=== PATIENT | female | born 1950 | race Caucasian/White ===

== ENCOUNTER 2019-05-16 11:29 | Inpatient (IN) ==
--- NOTE | 2019-05-16 09:38 | Anesthesia Evaluation PreOp ---
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 History: TIA (2012) Other Medical History: Renal (CKD), Diabetes Type II, Other (rectal CA s/p chemo ans XRT) Anesthesia History: No Prior Anesthetic Complications, Past Anesthesia (colon resection, JOSE LUIS, bladder repair) Alcohol Use: none Drug use: none Medications and Allergies Pravastatin Sodium [Pravachol] 20 mg PO HS 05/16/15 [History] Aspirin 81 mg PO DAILY 07/01/16 [History] Losartan/Hydrochlorothiazide [Hyzaar 100-25 Tablet] 0.5 each PO DAILY 07/01/16 [History] Glimepiride [Amaryl] 2 mg PO BID 06/30/18 [History] Cyanocobalamin (Vitamin B-12) [Vitamin B12] 1,000 mcg PO DAILY 07/02/18 [History] Metformin HCl [Glucophage Xr] 750 mg PO DAILY 11/09/18 [History] Amlodipine Besylate 10 mg PO DAILY 11/29/18 [History] Metoprolol Tartrate 100 mg PO BID 11/30/18 [History] Loperamide HCl [Imodium A-D] 2 mg PO Q6H PRN #90 capsule 02/08/19 [Rx] Ferrous Sulfate [Iron] 325 mg PO BID #60 tablet 03/21/19 [Rx] hydroCHLOROthiazide [Hydrochlorothiazide] 25 mg PO DAILY 04/05/19 [History] Metaxalone [Skelaxin] 800 mg PO TID PRN 5 Days #15 tablet 05/03/19 [Rx] cephALEXin [Keflex] 500 mg PO TID 5 Days #15 capsule 05/03/19 [Rx] Allergy/AdvReac Type Severity Reaction Status Date / Time pioglitazone [From Actos] Allergy See Verified 05/03/19 14:32 Comments - Meds/Allergy Pre-op Review Medications Reviewed: Yes Allergies Reviewed: Yes Beta Blockers on Current Med List: Yes (metoprolol) If Beta Blockers taken, Date/Time (Last Dose taken): today 0800 Anesthesia Results - Labs Laboratory Tests 05/03/19 05/03/19 15:33 15:33 Hgb 10.1 L Hct 31.2 L Plt Count 261 BUN 52 H Creatinine 1.72 H Anesthesia Exam Selected Entries 05/16/19 11:56 Temperature 98.1 F Pulse Rate 103 Respiratory Rate 18 Blood Pressure 130/71 O2 Sat by Pulse Oximetry 93 Weight: 79kg NPO (# of Hours): 8 - HEENT Pupil (Motor): EOMI Mallampati: II Teeth: Normal Oral Opening: Greater than 3 - 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
[2019-05-16] MEDS ORDERED: *HR* HYDROmorphone (PF) 1 MG/ML SYRINGE IVP PRN (12:27)
[2019-05-16] MEDS ORDERED: *HR* Promethazine 25 MG/ML VIAL IVP PRN ×2 (12:27→17:55)
[2019-05-16] MEDS ORDERED: Ringers Solution, Lactated 1,000 ML IVC SCH (12:30)
[2019-05-16] MEDS ORDERED: cefOXitin 2,000 MG in Water for inj. (sterile) 20 ML IVP ONE (12:31)
[2019-05-16] MEDS ORDERED: Albuterol 2.5 MG/3 ML NEBULIZER IH ONE (12:31)
[2019-05-16] MEDS ORDERED: Lidocaine -MPF 2% 2 ML VIAL ONE (13:58)
[2019-05-16] MEDS ORDERED: *HR* Propofol 200 MG/20 ML VIAL IVP ONE (13:58)
[2019-05-16] MEDS ORDERED: *HR* Rocuronium Bromide 50 MG/5 ML VIAL ONE (13:58)
[2019-05-16] MEDS ORDERED: *HR* FentaNYL (PF) 100 MCG/2 ML VIAL ONE ×2 (13:58→16:27)
[2019-05-16] MEDS ORDERED: *HR* Succinylcholine 200 MG/10 ML VIAL IVP ONE (13:59)
[2019-05-16] MEDS ORDERED: Ondansetron 4 MG/2 ML VIAL ONE (14:00)
[2019-05-16] MEDS ORDERED: Dexamethasone 4 MG/ML VIAL ONE (14:00)
[2019-05-16] MEDS ORDERED: Lidocaine HCL 4 ML Topical Solution (Laryng-O-Jet Kit Sterile Pak) TP ONE (14:09)
--- NOTE | 2019-05-16 15:02 | General Surg History&Physical ---
Date of Encounter: 05/16/19 Time of Encounter: 14:57 Assessment and Plan (1) History of low anterior resection of rectum Current Visit: Yes Status: Acute The assessment and plan as outlined above was discussed with the patient and/or family members who expressed understanding and agreement. All questions were answered. patient s/p LAR with diverting loop ileostomy, plan ostomy reversal, risks and benefits discussed and she wishes to proceed (2) Rectal cancer Current Visit: No Status: Acute The assessment and plan as outlined above was discussed with the patient and/or family members who expressed understanding and agreement. All questions were answered. (3) Diabetes mellitus Current Visit: No Status: Acute The assessment and plan as outlined above was discussed with the patient and/or family members who expressed understanding and agreement. All questions were answered. Qualifiers: Diabetes mellitus type: type 2 Diabetes mellitus alf insulin use: unspecified alf insulin use status Diabetes mellitus complication detail: with chronic kidney disease Chronic kidney disease stage: stage 3 (moderate) Qualified Code(s): E11.22 - Type 2 diabetes mellitus with diabetic chronic kidney disease; N18.3 - Chronic kidney disease, stage 3 (moderate) (4) Hypertension associated with stage 3 chronic kidney disease due to type 2 diabetes mellitus Current Visit: No Status: Acute The assessment and plan as outlined above was discussed with the patient and/or family members who expressed understanding and agreement. All questions were answered. History of Present Illness Chief complaint: history rectal cancer and loop ileostomy HPI: Ms. Aviles is a 68 year old female with a history of middle rectal cancer, received neoadjuvant therapy, s/p Robotic LAR with loop ileostomy, underwent adjuvant therapy, here today for loop ileostomy take down Past Med Surg Social Fam HX - Past Medical History Source: patient Medical history: cancer (rectal), diabetes, hyperlipidemia, hypertension, renal disease, TIA Additional medical history: Rectal CA. Fibrocystic breast dx Psychiatric history: no psych history - Past Surgical History Surgical History: hysterectomy, JOSE LUIS/BSO, other Additional surgical history: Colonoscopy. L breast bx. bladder repair - Social History Smoking Status: Never smoker Smokeless Tobacco Status: No Alcohol use: none Drug use: none - Family History Mother Living Status: Hx Family Cardiac Disorders: Yes Father Living Status: Medications and Allergies Pravastatin Sodium [Pravachol] 20 mg PO HS 05/16/15 [History] Aspirin 81 mg PO DAILY 07/01/16 [History] Cyanocobalamin (Vitamin B-12) [Vitamin B12] 1,000 mcg PO DAILY 07/02/18 [History] Metformin HCl [Glucophage Xr] 750 mg PO QPM 11/09/18 [History] Amlodipine Besylate 10 mg PO DAILY 11/29/18 [History] Metoprolol Tartrate 100 mg PO BID 11/30/18 [History] Loperamide HCl [Imodium A-D] 2 mg PO Q6H PRN #90 capsule 02/08/19 [Rx] Ferrous Sulfate [Iron] 325 mg PO BID #60 tablet 03/21/19 [Rx] Glimepiride [Amaryl] 2 mg PO BID 05/16/19 [History] Losartan/Hydrochlorothiazide [Losartan-Hctz 100-12.5 mg Tab] 0.5 tab PO DAILY 05/16/19 [History] Allergy/AdvReac Type Severity Reaction Status Date / Time pioglitazone [From Cytheris] Allergy See Verified 05/03/19 14:32 Comments Review of Systems All systems PM: reviewed and no additional remarkable complaints except as stated All systems PM: The remainder of the systems were reviewed and are negative General Surgery Exam Initial Vital Signs Temp Pulse Resp BP Pulse Ox 98.1 F 103 18 130/71 93 05/16/19 11:56 05/16/19 11:56 05/16/19 11:56 05/16/19 11:56 05/16/19 11:56 - General physical appearance well developed, well nourished, no distress - Eyes PERRL, normal ocular movement - ENT normal mucosa - Respiratory normal expansion - Cardiovascular Cardiovascular exam: Present: RRR - Abdomen Abdomen general surgery: Present: bowel sounds present, soft, non tender (loop ileostomy) - Integumentary Integumentary general surgery: Present: warm and dry - Neurologic Present: CN 2-12 grossly intact - Musculoskeletal Present: normal posture - Psychiatric Psychiatric general surgery: Present: A&Ox3 Results - Labs All other labs normal.
[2019-05-16] MEDS ORDERED: EPHEDrine 50 MG/ML VIAL ONE (15:41)
[2019-05-16] MEDS ORDERED: Neostigmine Methylsulfate 3 MG/3 ML SYRINGE ONE ×2 (16:09)
[2019-05-16] MEDS ORDERED: *HR* PHENYLEPHRINE 1,000 MCG/10 ML SYRINGE IVP ONE (16:10)
--- NOTE | 2019-05-16 17:09 | Operative Note ---
Date of procedure: 05/16/19 Pre-op diagnosis: rectal cancer, s/p LAR with loop ileostomy Post-op diagnosis: same Procedure: Loop ileostomy takedown Complications: none immediate Anesthesia: GETA Surgeon: Rosario Santana Was there an assistant kitchen manager present: Yes Xerox Machine Operator: Theresa Pandey Estimated blood loss (cc): 5 Specimen: ileum Condition: stable Disposition: PACU Procedure in Detail: Patient was brought into the operating suite and placed supine on the operating table. Sign in was performed and everyone was in agreement. Anesthesia was induced and patient was endotracheally intubated by anesthesia without incident. Ileostomy appliance was removed and the skin cleaned with adhesive remover. The abdomen was prepped and draped in the usual sterile fashion with Betadine. Timeout was performed again everyone was in agreement. A transverse elliptical incision through the skin and the subcutaneous tissue surrounding the loop ileostomy was made with a 15 blade. Dissection through the subcutaneous tissue to the intra-abdominal fascia was accomplished with the Bovie and hemostat. The small bowel was taken off the fascia circumferentially. A opening in the mesentery proximally and distally to the open loop ileostomy was made with a Bovie and the proximal and distal small bowel were transected with a linear ROGER- 75 stapler 2. A [id number] ileoileal anastomosis was created first with a linear ROGER-75 stapler blue load then a TA 60 stapler closing the common channel. 3-0 silk stitch was placed as a crotch stitch. The common channel closed and was reinforced with 3-0 silk [id number] stitches. The lumen was felt to be patent. The small bowel was irrigated then returned to the intra-abdominal cavity. Janneth was placed on either side of the fascia for retraction. The anterior abdominal wall at the rectus muscle was reapproximated with 2 #1 non- looped PDS stitches running and meeting in the middle. The subcutaneous tissue was copiously irrigated with sterile saline. The subcutaneous tissue was reapproximated with 3-0 Vicryl interrupted stitches. The skin was closed with wesley. Quarter inch iodoform gauze was packed in the middle of the incision. 4 x 4 gauze and Medipore tape were applied to the skin as a dressing. All lap and ensuring counts are correct at the end of the case. Patient tolerated the procedure well. She was awoken by anesthesia and extubated in the OR. She was taken to PACU in stable condition.
[2019-05-16] MEDS ORDERED: *HR* Metoprolol 5 MG/5 ML VIAL IVP PRN (17:55)
[2019-05-16] MEDS ORDERED: Dextrose Gel 15 GM/37.5 ML TUBE PO PRN ×4 (17:55)
[2019-05-16] MEDS ORDERED: D5% in Water 1,000 ML IVC PRN (17:55)
[2019-05-16] MEDS ORDERED: Ondansetron 4 MG/2 ML VIAL IVP PRN (17:55)
[2019-05-16] MEDS ORDERED: *HR* Dextrose 50 % in Water (Syg) 50 ML SYRINGE IVP PRN (17:55)
[2019-05-16] MEDS ORDERED: Naloxone 0.4 MG/ML INJ IVP PRN (17:55)
[2019-05-16] MEDS: 0.9 % Sodium Chloride 1,000 ML IVC SCH (18:51)
[2019-05-16] MEDS: *HR* OxyCODONE/APAP 5/325 TABLET PO PRN (18:57)
[2019-05-16] MEDS: Insulin LISPRO 300 UNITS/3 ML VIAL SQ SCH (18:59)
[2019-05-16] MEDS: Metoprolol 100 MG TABLET PO SCH (20:43)
--- NOTE | 2019-05-16 23:34 | Anesthesia Evaluation Post Op ---
Date of Encounter: 05/16/19 Time of Encounter: 17:39 - Discharge PostOp Status: Transfer Patient to floor (Patient's vital signs have been reviewed. Patient is stable postoperatively and has adequately recovered from anesthesia. Patient is determined to have stable airway patency and respiratory function including respiratory rate and oxygen saturation. Patient has a stable heart rate, blood pressure and adequate hydration. Patients mental status is acceptable. Patients temperature is appropriate. Pain and nausea are adequately controlled)
[2019-05-17] MEDS: Piperacillin/Tazobactam 3.375 GM in 0.9 % Sodium Chloride Mini Bag 100 ML IVPB SCH ×3 (00:27→15:15)
[2019-05-17] MEDS: Insulin LISPRO 300 UNITS/3 ML VIAL SQ SCH ×4 (00:27→18:30)
[2019-05-17] MEDS: *HR* OxyCODONE/APAP 5/325 TABLET PO PRN ×3 (00:36→15:18)
[2019-05-17 04:15] LABS: Basophils % 0.1 %; Hematocrit 29.3 % (35.3-44.9); Hemoglobin 9.3 g/dL (11.5-15.4); Immature Granulocytes % 0.5 % (0-4); Lymphocytes # 0.4 K/mcL (0.6-4.6); Lymphocytes % 2.2 %; Mean Corpuscular HGB Conc 31.7 g/dL (31.6-35.5); Mean Corpuscular Hemoglobin 33.2 pg (28.0-33.3); Mean Corpuscular Volume 104.6 fL (83.0-100.0); Mean Platelet Volume 8.9 fL (9.4-12.4); Monocytes # 0.4 K/mcL (0.0-1.3); Monocytes % 2.7 %; Neutrophils # 15.5 K/mcL (1.6-8.9); Platelet Count 186 K/mcL (140-400); Red Cell Distribution Width 14.1 % (11.5-14.5); Segmented Neutrophils % 94.5 %; White Blood Count 16.3 K/mcL (4.3-11.1)
[2019-05-17 04:32] LABS: Calcium 9.7 mg/dL (8.6-10.3); Magnesium 1.7 mg/dL (1.6-2.6); Phosphorous 4.2 mg/dL (2.7-4.5); Potassium 5.6 mEq/L (3.5-5.1)
[2019-05-17] MEDS: 0.9 % Sodium Chloride 1,000 ML IVC SCH ×2 (05:30→17:32)
[2019-05-17] MEDS: Pantoprazole 40 MG VIAL IVP SCH (07:46)
[2019-05-17] MEDS: Metoprolol 100 MG TABLET PO SCH ×2 (07:55→20:36)
[2019-05-17] MEDS ORDERED: amLODIPine 5 MG TABLET PO SCH (09:00)
[2019-05-17] MEDS ORDERED: hydroCHLOROthiazide 25 MG TABLET PO SCH ×2 (09:00)
--- NOTE | 2019-05-17 10:37 | General Surgery Progress Note ---
<GregReyna Christiano - Last Filed: 05/17/19 10:35> Date of Encounter: 05/17/19 Time of Encounter: 09:30 - Assessment and Plan (1) History of low anterior resection of rectum Current Visit: Yes Status: Acute Date of procedure: 05/16/19 Pre-op diagnosis: rectal cancer, s/p LAR with loop ileostomy Post-op diagnosis: same Procedure: Loop ileostomy takedown Complications: none immediate Anesthesia: GETA Surgeon: Rosario Santana POD #1 as above. She states her pain is controlled. She is recovering as expected. She reports she sometimes uses a walker at home. We will consult PT/OT for mobilization and d/c planning. Plan: Continue supportive care and discomfort management while awaiting full return of bowel function Continue G.I. and DVT prophylaxis Incentive spirometry 10 times every hour while awake Out of bed to chair TID, do not offer meal trays while in the bed Activity as tolerated Apply ice 20 minutes on 20 minutes off as needed Continue IV ATBX Repeat am labs (2) Rectal cancer Current Visit: No Status: Acute (3) Hypertension associated with stage 3 chronic kidney disease due to type 2 diabetes mellitus Current Visit: Yes Status: Chronic Hold antihypertensives for systolic blood pressure less than 110 continue to closely monitor (4) Diabetes mellitus Current Visit: Yes Status: Chronic SSI insulin and Q6H accucheck until appropriate diet Qualifiers: Diabetes mellitus type: type 2 Diabetes mellitus nursing home insulin use: unspecified nursing home insulin use status Diabetes mellitus complication detail: with chronic kidney disease Chronic kidney disease stage: stage 3 (moderate) Qualified Code(s): E11.22 - Type 2 diabetes mellitus with diabetic chronic kidney disease; N18.3 - Chronic kidney disease, stage 3 (moderate) Subjective Patient reports: still having pain (controlled with meds), voiding w/o difficulty, no flatus, no bowel movement, afebrile Narrative: Denies nausea Objective Vital Signs - Last 8 Hours Temp Pulse Resp BP Pulse Ox 05/17/19 06:46 97.4 F L 67 15 99/61 93 05/17/19 02:54 97.7 F 73 16 108/86 94 05/17/19 02:46 98.3 F 96 16 174/78 97 Intake and Output 05/16/19 05/17/19 05/17/19 23:59 07:59 15:59 Intake Total 1100 / 1100 Output Total 250 / 250 Balance -5 850 / 850 Intake: IV Fluids 1100 / 1100 0.9 % Sodium Chloride 1,000 ML 1000 / 1000 @ 85 mls/hr IVC .[id number] [facility] Rx #:[id number] Zosyn 3.375 GM In 0.9 % Sodium 100 / 100 Chloride (Mini-Bag +) 100 ML @ 25 mls/hr IVPB Q8HR [facility] Rx#: [id number] Output: Urine 250 / 250 Estimated Blood Loss Other: # Voids 1 Blood Glucose* 163 210 - General physical appearance well nourished, no distress, moderate pain (controlled), obese - ENT atraumatic, normocephalic - Neck Neck exam: trachea midline - Respiratory normal expansion, normal respiratory effort - Cardiovascular Cardiovascular exam: Present: RRR, distant heart sounds - Abdomen Abdomen: Present: bowel sounds present (faint and hypoactive), soft, tender (expected postoperative) Hernia: none - Incision Incision: Present: clean and dry, intact - Integumentary no rash - Neurologic normal sensation - Musculoskeletal normal posture - Psychiatric oriented to time, oriented to person, oriented to place, speech is normal, memory intact - Labs 05/17/19 03:40 05/17/19 03:40 Diabetes panel 05/17/19 Range/Units 03:40 Sodium 138 (136-145) mEq/L Potassium 5.6 H (3.5-5.1) mEq/L Chloride 108 H (98-107) mEq/L Carbon Dioxide 19 L (23-29) mEq/L BUN 40 H (8-23) mg/dL Creatinine 1.62 H (0.60-1.20) mg/dL Glucose 259 H (70-105) mg/dL Calcium 9.7 (8.6-10.3) mg/dL Calcium panel 05/17/19 Range/Units 03:40 Calcium 9.7 (8.6-10.3) mg/dL Phosphorus 4.2 (2.7-4.5) mg/dL Pituitary panel 05/17/19 Range/Units 03:40 Sodium 138 (136-145) mEq/L Potassium 5.6 H (3.5-5.1) mEq/L Chloride 108 H (98-107) mEq/L Carbon Dioxide 19 L (23-29) mEq/L BUN 40 H (8-23) mg/dL Creatinine 1.62 H (0.60-1.20) mg/dL Glucose 259 H (70-105) mg/dL Calcium 9.7 (8.6-10.3) mg/dL Adrenal panel 05/17/19 Range/Units 03:40 Sodium 138 (136-145) mEq/L Potassium 5.6 H (3.5-5.1) mEq/L Chloride 108 H (98-107) mEq/L Carbon Dioxide 19 L (23-29) mEq/L BUN 40 H (8-23) mg/dL Creatinine 1.62 H (0.60-1.20) mg/dL Glucose 259 H (70-105) mg/dL Calcium 9.7 (8.6-10.3) mg/dL Consult Discharge Plan - Plan Referrals: Sun June MD [Primary Care Provider] - <Rosario Santana - Last Filed: 05/17/19 14:35> Date of Encounter: 05/17/19 - Assessment and Plan (1) History of low anterior resection of rectum Current Visit: Yes Status: Acute pod ~ loop ileostomy reversal start clears prn pain control gi/dvt prophylaxis OOB to chair for all meals continue Abx due to stool contamination during surgery ambulate IS/pulmonary toilet (2) Rectal cancer Current Visit: No Status: Acute (3) Diabetes mellitus Current Visit: Yes Status: Chronic SSI/MBS will start home meds once diet appropriate Qualifiers: Diabetes mellitus type: type 2 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 nursing home insulin use status Diabetes mellitus complication detai l: with chronic kidney disease Chronic kidney disease stage: stage 3 (moderate) Qualified Code(s): E11.22 - Type 2 diabetes mellitus with diabetic chronic kidney disease; N18.3 - Chronic kidney disease, stage 3 (moderate) (4) Hypertension associated with stage 3 chronic kidney disease due to type 2 diabetes mellitus Current Visit: Yes Status: Chronic (5) Leukocytosis Current Visit: Yes Status: Acute likely due to post op, continue abx due to liq stool contamination during takedown,trend Qualifiers: Leukocytosis type: unspecified Qualified Code(s): D72.829 - Elevated white blood cell count, unspecified Subjective Patient reports: still having pain, voiding w/o difficulty, no flatus, no bowel movement, afebrile Objective Vital Signs - Last 8 Hours Temp Pulse Resp BP Pulse Ox 05/17/19 12:14 97.7 F 71 16 106/66 90 05/17/19 06:46 97.4 F L 67 15 99/61 93 Intake and Output 05/16/19 05/17/19 05/17/19 23:59 07:59 15:59 Intake Total 1100 / 1200 100 / 1200 Output Total 5 / 5 250 / 250 Balance -5 / -5 850 / 950 100 / 950 Intake: IV Fluids 1100 / 1200 100 / 1200 0.9 % Sodium Chloride 1,000 ML 1000 / 1000 @ 85 mls/hr IVC .[id number] [facility] Rx #:[id number] Zosyn 3.375 GM In 0.9 % Sodium 100 / 200 100 / 200 Chloride (Mini-Bag +) 100 ML @ 25 mls/hr IVPB Q8HR [facility] Rx#: [id number] Output: Urine 250 / 250 Estimated Blood Loss 5 5 Other: # Voids 1 Blood Glucose* 163 210 166 - General physical appearance well developed, well nourished, no distress, moderate pain - Eyes normal ocular movement - ENT normal mucosa, atraumatic - Neck Neck exam: trachea midline - Respiratory normal expansion, normal respiratory effort - Cardiovascular Cardiovascular exam: Present: RRR - Abdomen Abdomen: Present: bowel sounds present, soft, tender - Incision Incision: Present: clean and dry, intact (iodoform packing in middle) - Integumentary no rash - Neurologic normal sensation - Musculoskeletal normal posture - Psychiatric oriented to time, oriented to person, oriented to place, speech is normal, memory intact - Labs 05/17/19 03:40 05/17/19 03:40 Diabetes panel 05/17/19 Range/Units 03:40 Sodium 138 (136-145) mEq/L Potassium 5.6 H (3.5-5.1) mEq/L Chloride 108 H (98-107) mEq/L Carbon Dioxide 19 L (23-29) mEq/L BUN 40 H (8-23) mg/dL Creatinine 1.62 H (0.60-1.20) mg/dL Glucose 259 H (70-105) mg/dL Calcium 9.7 (8.6-10.3) mg/dL Calcium panel 05/17/19 Range/Units 03:40 Calcium 9.7 (8.6-10.3) mg/dL Phosphorus 4.2 (2.7-4.5) mg/dL Pituitary panel 05/17/19 Range/Units 03:40 Sodium 138 (136-145) mEq/L Potassium 5.6 H (3.5-5.1) mEq/L Chloride 108 H (98-107) mEq/L Carbon Dioxide 19 L (23-29) mEq/L BUN 40 H (8-23) mg/dL Creatinine 1.62 H (0.60-1.20) mg/dL Glucose 259 H (70-105) mg/dL Calcium 9.7 (8.6-10.3) mg/dL Adrenal panel 05/17/19 Range/Units 03:40 Sodium 138 (136-145) mEq/L Potassium 5.6 H (3.5-5.1) mEq/L Chloride 108 H (98-107) mEq/L Carbon Dioxide 19 L (23-29) mEq/L BUN 40 H (8-23) mg/dL Creatinine 1.62 H (0.60-1.20) mg/dL Glucose 259 H (70-105) mg/dL Calcium 9.7 (8.6-10.3) mg/dL - Attending Attestation I have personally performed a face to face evaluation on this patient. I have reviewed and agree with the care plan. History and Exam by me shows:
[2019-05-17] MEDS: amLODIPine 5 MG TABLET PO SCH (10:55)
[2019-05-18] MEDS: Piperacillin/Tazobactam 3.375 GM in 0.9 % Sodium Chloride Mini Bag 100 ML IVPB SCH ×4 (00:18→22:17)
[2019-05-18] MEDS: Insulin LISPRO 300 UNITS/3 ML VIAL SQ SCH ×5 (03:57→20:38)
[2019-05-18] MEDS: 0.9 % Sodium Chloride 1,000 ML IVC SCH ×3 (05:04→19:08)
[2019-05-18 05:25] LABS: Basophils % 0.2 %; Eosinophils % 0.3 %; Hematocrit 26.7 % (35.3-44.9); Hemoglobin 8.4 g/dL (11.5-15.4); Immature Granulocytes % 0.4 % (0-4); Lymphocytes # 0.5 K/mcL (0.6-4.6); Lymphocytes % 4.5 %; Mean Corpuscular HGB Conc 31.5 g/dL (31.6-35.5); Mean Corpuscular Hemoglobin 33.1 pg (28.0-33.3); Mean Corpuscular Volume 105.1 fL (83.0-100.0); Mean Platelet Volume 9.1 fL (9.4-12.4); Monocytes # 0.5 K/mcL (0.0-1.3); Monocytes % 5.1 %; Neutrophils # 9.2 K/mcL (1.6-8.9); Platelet Count 162 K/mcL (140-400); Red Blood Count 2.54 M/mcL (3.82-4.97); Red Cell Distribution Width 14.1 % (11.5-14.5); Segmented Neutrophils % 89.5 %; White Blood Count 10.3 K/mcL (4.3-11.1)
[2019-05-18 05:50] LABS: Potassium 4.5 mEq/L (3.5-5.1)
[2019-05-18] MEDS: amLODIPine 5 MG TABLET PO SCH (09:27)
[2019-05-18] MEDS: Metoprolol 100 MG TABLET PO SCH ×2 (09:28→20:09)
--- NOTE | 2019-05-18 10:53 | General Surgery Progress Note ---
<Judy Tinajero - Last Filed: 05/18/19 10:46> Date of Encounter: 05/18/19 Time of Encounter: 10:30 - Assessment and Plan (1) History of low anterior resection of rectum Status: Acute POD #2 Loop ileostomy takedown with Dr. Santana Advance to full liquid diet- diabetic modifications Continue IV fluids- 85ml/hour IV antibiotics- Zosyn for fecal contamination Supportive care and pain control Daily wound care- wound packed per myself IS every 1 hour while awake GI/DVT prophylaxis Ambulate hallways TID with assistance Abdominal binder AM labs- CBC, BMP Place power glide for poor IV access (2) Rectal cancer Status: Chronic (3) Diabetes mellitus Status: Chronic Full liquid diet with diabetic modification SSI ACHS- increase to high sliding scale Will continue to monitor and adjust as necessary Qualifiers: Diabetes mellitus type: type 2 Diabetes mellitus fci insulin use: unspecified termite treater helper insulin use status Diabetes mellitus complication detail: with chronic kidney disease Chronic kidney disease stage: stage 3 (moderate) Qualified Code(s): E11.22 - Type 2 diabetes mellitus with diabetic chronic kidney disease; N18.3 - Chronic kidney disease, stage 3 (moderate) (4) Hypertension associated with stage 3 chronic kidney disease due to type 2 diabetes mellitus Status: Chronic Controlled Continue to monitor and adjust medications as necessary Subjective Patient reports: no new complaints, feels better, pain is less, tolerating l iquids well, voiding w/o difficulty, flatus, bowel movement, blood in stool (resolved this morning), afebrile, other (Patient out of bed to chair bathing and walked in the hallway this morning with assistance) Objective Vital Signs - Last 8 Hours Temp Pulse Resp BP Pulse Ox 05/18/19 07:14 98.8 F 96 16 120/74 92 05/18/19 04:26 99.6 F 92 17 109/67 95 Intake and Output 05/17/19 05/18/19 05/18/19 23:59 07:59 15:59 Intake Total 1100 / 2300 1100 / 1540 440 / 1540 Output Total 300 / 300 Balance 1099 / 0 800 / 1240 440 / 1240 Intake: IV Fluids 1100 / 2300 1100 / 1300 200 / 1300 0.9 % Sodium Chloride 1,000 ML 1000 / 2000 1000 / 1200 200 / 1200 @ 85 mls/hr IVC .[id number] [facility] Rx #:[id number] Zosyn 3.375 GM In 0.9 % Sodium 100 / 300 100 / 100 Chloride (Mini-Bag +) 100 ML @ 25 mls/hr IVPB Q8HR [facility] Rx#: [id number] Oral 240 / 240 Output: Urine 300 / 300 Other: Meal Breakfast Percent of Meal Consumed 75% Stool Size Moderate Stool Consistency liquid Stool Color Pale Bright Red Blood # Voids 1 # Bowel Movements 1 Blood Glucose* 124 204 - General physical appearance well developed, well nourished, no distress - Eyes normal ocular movement - ENT normal mucosa, atraumatic, normocephalic - Neck Neck exam: trachea midline - Respiratory normal respiratory effort, clear to auscultation - Cardiovascular Cardiovascular exam: Present: RRR - Abdomen Abdomen: Present: bowel sounds present, soft, tender (minimal, expected post- operative discomfort), wound (Ileostomy site with scant amount of serousang. drainage noted, packing placed per myself) - Incision Incision: Present: serosanguinous (scant amount of drainage noted from old ileostomy site) - Neurologic CN 2-12 grossly intact - Musculoskeletal normal gait, normal posture - Psychiatric oriented to time, oriented to person, oriented to place, speech is normal, memory intact - Labs 05/18/19 04:20 05/18/19 04:20 Diabetes panel 05/18/19 Range/Units 04:20 Sodium 139 (136-145) mEq/L Potassium 4.5 (3.5-5.1) mEq/L Chloride 109 H (98-107) mEq/L Carbon Dioxide 21 L (23-29) mEq/L BUN 32 H (8-23) mg/dL Creatinine 1.56 H (0.60-1.20) mg/dL Glucose 198 H (70-105) mg/dL Calcium 9.0 (8.6-10.3) mg/dL Calcium panel 05/18/19 Range/Units 04:20 Calcium 9.0 (8.6-10.3) mg/dL Pituitary panel 05/18/19 Range/Units 04:20 Sodium 139 (136-145) mEq/L Potassium 4.5 (3.5-5.1) mEq/L Chloride 109 H (98-107) mEq/L Carbon Dioxide 21 L (23-29) mEq/L BUN 32 H (8-23) mg/dL Creatinine 1.56 H (0.60-1.20) mg/dL Glucose 198 H (70-105) mg/dL Calcium 9.0 (8.6-10.3) mg/dL Adrenal panel 05/18/19 Range/Units 04:20 Sodium 139 (136-145) mEq/L Potassium 4.5 (3.5-5.1) mEq/L Chloride 109 H (98-107) mEq/L Carbon Dioxide 21 L (23-29) mEq/L BUN 32 H (8-23) mg/dL Creatinine 1.56 H (0.60-1.20) mg/dL Glucose 198 H (70-105) mg/dL Calcium 9.0 (8.6-10.3) mg/dL Consult Discharge Plan - Plan Instructions: Ileostomy Closure (DC) Additional Instructions: General Surgical Discharge Instructions 1. No pushing, pulling, or lifting greater than 15 lbs for 6 weeks. 2. You may remove your dressings and shower beginning today, but no tub baths, soaking, or swimming for 2 weeks. 3. No driving for one weeks unless otherwise specified and then you may resume driving when you are off narcotics and are safe to react in a car. 4. Apply ice 20 minutes every hour that you are awake to your abdomen and [id number] mg Tylenol every 6 hours for discomfort. If this does not relieve d iscomfort, you may take the as needed Oxycodone. Eat a small snack with pain medication as this will help reduce the risk of nausea. Take narcotics as directed. Do not take more narcotics then directed and do not share your narcotics with any other person. Do not drink alcohol while on narcotics. You can take the Zofran/ondansetron if needed for nausea or with a dose of narcotics to prevent nausea. 5. Take immodium as directed for diarrhea. Drink AT LEAST 64 ounces of fluids daily and avoid sugary drinks. 6. Report any fevers greater than 100.5F, increase abdominal discomfort, drainage that looks like pus, increased redness or pain at the surgical site, or any vomiting. 7. Report any pain in the calves, shortness of breath, or rapid heartbeat. 8. Follow-up in the office as directed. 9. If you were prescribed antibiotics, do not stop them without talking to your provider. Daily Wound Care: Remove dressing and packing. Repack with 1/4 inch plain gauze (for wicking purposes only. Do not pack into the abdominal wall). Cover with a dry dressing. Referrals: Sun uJne MD [Primary Care Provider] - Rosario Santana MD [Partnered Physician] - 06/01/19 9:05 am Prescriptions: Amoxicillin/Clavulanate [Augmentin] 875 mg PO BIDWM 7 Days #8 tablet OxyCODONE Immed Rel [Roxicodone 5 MG] 5 mg PO Q6HR PRN 5 Days #20 tablet PRN Reason: Severe Pain Ondansetron HCl [Zofran] 4 mg PO Q8HR PRN #14 tab PRN Reason: Nausea - Attending Attestation For this encounter, I have reviewed the TOOL AND DIE MANAGER or PA documentation, treatment plan, and medical decision making; and I have had face to face time with this patient. <Rosario Santana - Last Filed: 05/19/19 17:55> Date of Encounter: 05/18/19 - Assessment and Plan (1) History of low anterior resection of rectum Status: Acute tolerating clears and advanced to fulls some nausea and distention yesterday but improved today had bm/flatus prn pain control continue abx for fecal contamination ambulate OOB in chair with meals ok shower daily dressing changes (2) Rectal cancer Status: Chronic (3) Diabetes mellitus Status: Chronic Qualifiers: Diabetes mellitus type: type 2 Diabetes mellitus fci insulin use: unspecified termite treater helper insulin use status Diabetes mellitus complication status: with kidney complications Diabetes mellitus complication detail: with chronic kidney disease Chronic kidney disease stage: stage 3 (moderate) Qualified Code(s): E11.22 - Type 2 diabetes mellitus with diabetic chronic k idney disease; N18.3 - Chronic kidney disease, stage 3 (moderate) (4) Hypertension associated with stage 3 chronic kidney disease due to type 2 diabetes mellitus Status: Chronic (5) Leukocytosis Status: Acute Qualifiers: Leukocytosis type: unspecified Qualified Code(s): D72.829 - Elevated white blood cell count, unspecified Subjective Patient reports: feels better, still having pain, pain is less, tolerating li quids well, flatus, bowel movement, afebrile Objective Vital Signs - Last 8 Hours Temp Pulse Resp BP Pulse Ox 05/19/19 15:01 98.1 F 90 18 117/70 93 05/19/19 11:13 98 F 85 14 108/63 95 Intake and Output 05/19/19 05/19/19 05/19/19 07:59 15:59 23:59 Intake Total 950 / 1805 855 / 1805 Output Total 100 / 100 Balance 850 / 1705 855 / 1705 Intake: IV Fluids 950 / 1150 200 / 1150 0.9 % Sodium Chloride 1,000 ML 950 / 950 @ 85 mls/hr IVC .[id number] [facility] Rx #:[id number] Zosyn 3.375 GM In 0.9 % Sodium 200 / 200 Chloride (Mini-Bag +) 100 ML @ 25 mls/hr IVPB Q8H [facility] Rx#: [id number] Oral 655 / 655 Output: Urine 100 / 100 Other: Meal Breakfast Percent of Meal Consumed 100% # Bowel Movements 1 # Bowel Movement Diapers 1 Blood Glucose* 153 138 - General physical appearance well developed, well nourished, no distress - Eyes normal ocular movement - ENT normal mucosa, normocephalic - Respiratory normal expansion, normal respiratory effort - Cardiovascular Cardiovascular exam: Present: RRR - Abdomen Abdomen: Present: bowel sounds present, soft, tender - Incision Incision: Present: clean and dry, intact, serosanguinous - Neurologic CN 2-12 grossly intact - Musculoskeletal normal posture - Psychiatric oriented to time, oriented to person, speech is normal, memory intact - Labs 05/19/19 03:40 05/19/19 03:40 Diabetes panel 05/19/19 Range/Units 03:40 Sodium 140 (136-145) mEq/L Potassium 4.0 (3.5-5.1) mEq/L Chloride 113 H (98-107) mEq/L Carbon Dioxide 20 L (23-29) mEq/L BUN 19 (8-23) mg/dL Creatinine 1.24 H (0.60-1.20) mg/dL Glucose 131 H (70-105) mg/dL Calcium 8.6 (8.6-10.3) mg/dL Calcium panel 05/19/19 Range/Units 03:40 Calcium 8.6 (8.6-10.3) mg/dL Pituitary panel 05/19/19 Range/Units 03:40 Sodium 140 (136-145) mEq/L Potassium 4.0 (3.5-5.1) mEq/L Chloride 113 H (98-107) mEq/L Carbon Dioxide 20 L (23-29) mEq/L BUN 19 (8-23) mg/dL Creatinine 1.24 H (0.60-1.20) mg/dL Glucose 131 H (70-105) mg/dL Calcium 8.6 (8.6-10.3) mg/dL Adrenal panel 05/19/19 Range/Units 03:40 Sodium 140 (136-145) mEq/L Potassium 4.0 (3.5-5.1) mEq/L Chloride 113 H (98-107) mEq/L Carbon Dioxide 20 L (23-29) mEq/L BUN 19 (8-23) mg/dL Creatinine 1.24 H (0.60-1.20) mg/dL Glucose 131 H (70-105) mg/dL Calcium 8.6 (8.6-10.3) mg/dL - Attending Attestation I have personally performed a face to face evaluation on this patient. I have reviewed and agree with the care plan. History and Exam by me shows:
[2019-05-18] MEDS: Pantoprazole 40 MG VIAL IVP SCH (11:19)
[2019-05-18] MEDS: *HR* OxyCODONE/APAP 5/325 TABLET PO PRN (20:20)
[2019-05-19 04:54] LABS: Basophils % 0.4 %; Eosinophils # 0.1 K/mcL (0.0-0.6); Eosinophils % 1.4 %; Hemoglobin 8.2 g/dL (11.5-15.4); Immature Granulocytes % 0.4 % (0-4); Lymphocytes # 0.6 K/mcL (0.6-4.6); Lymphocytes % 8.6 %; Mean Corpuscular HGB Conc 31.5 g/dL (31.6-35.5); Mean Corpuscular Hemoglobin 33.1 pg (28.0-33.3); Mean Corpuscular Volume 104.8 fL (83.0-100.0); Mean Platelet Volume 8.9 fL (9.4-12.4); Monocytes # 0.6 K/mcL (0.0-1.3); Monocytes % 8.3 %; Neutrophils # 5.6 K/mcL (1.6-8.9); Platelet Count 165 K/mcL (140-400); Red Blood Count 2.48 M/mcL (3.82-4.97); Red Cell Distribution Width 13.9 % (11.5-14.5); Segmented Neutrophils % 80.9 %
[2019-05-19 05:18] LABS: Calcium 8.6 mg/dL (8.6-10.3)
[2019-05-19] MEDS: Piperacillin/Tazobactam 3.375 GM in 0.9 % Sodium Chloride Mini Bag 100 ML IVPB SCH ×2 (05:56→14:48)
[2019-05-19] MEDS: 0.9 % Sodium Chloride 1,000 ML IVC SCH (06:27)
--- NOTE | 2019-05-19 08:27 | Discharge Summary ---
Date of Encounter: 05/19/19 Time of Encounter: 13:44 (1st asst 0800) - Discharge Diagnosis (1) History of low anterior resection of rectum Priority: Primary Status: Acute (2) Rectal cancer Priority: Secondary Status: Chronic (3) Hypertension associated with stage 3 chronic kidney disease due to type 2 diabetes mellitus Priority: Secondary Status: Chronic (4) Diabetes mellitus Priority: Secondary Status: Chronic Qualifiers: Diabetes mellitus type: type 2 Diabetes mellitus senior living insulin use: unspecified cylinder batcher insulin use status Diabetes mellitus complication st atus: with kidney complications Diabetes mellitus complication detail: with chronic kidney disease Chronic kidney disease stage: stage 3 (moderate) Qualified Code(s): E11.22 - Type 2 diabetes mellitus with diabetic chronic kidney disease; N18.3 - Chronic kidney disease, stage 3 (moderate) General Surgery Exam Initial Vital Signs Temp Pulse Resp BP Pulse Ox 98.1 F 103 18 130/71 93 05/16/19 11:56 05/16/19 11:56 05/16/19 11:56 05/16/19 11:56 05/16/19 11:56 - General physical appearance well nourished, no distress, no pain - Neck trachea midline - Respiratory normal expansion, normal respiratory effort - Cardiovascular Cardiovascular exam: Present: RRR - Abdomen Abdomen general surgery: Present: bowel sounds present, soft, tender (expected postoperative) - Incision Incision: Present: clean and dry, intact (overall. There is packing for wicking purposes noted with SS drainage) - Integumentary Integumentary general surgery: Present: warm and dry, no abnormal pigmentation - Neurologic Present: normal coordination, normal sensation - Musculoskeletal Present: normal posture, other (LLE unremarkable on exam) - Psychiatric Psychiatric general surgery: Present: A&Ox3 - Hospital Course Hospital course: Ms. Aviles is a 68 year old female who presented on 05/16/2019 and underwent elective ileostomy reversal with Dr. Santana. She was kept in the hospital under close supervision and receiving IV antibiotics for stool contamination at that time. Her hospital course has been unremarkable. She is ambulating with PT/OT and nursing and voiding without difficulty. Tolerating a diet without nausea or vomiting. She is having multiple bowel movements but understands that this is common after an ileostomy reversal and has been provided education regarding fluid and dietary recommendations at discharge. She verbalizes understanding. We will begin discharge planning to home with home health care and a follow-up in the office in approximately 2 weeks. Shortly after initial assessment at aprx 0800 this, pt reported pain in left calf. Doppler premlinary negative. Her exam is negative. - Time Spent with Patient Total time spent providing and/or coordinating discharge services: Less than 30 minutes - Discharge Medications Prescriptions: New OxyCODONE Immed Rel [Roxicodone 5 MG] 5 mg PO Q6HR PRN 5 Days #20 tablet PRN Reason: Severe Pain Ondansetron HCl [Zofran] 4 mg PO Q8HR PRN #14 tab PRN Reason: Nausea Amoxicillin/Clavulanate [Augmentin] 875 mg PO BIDWM 7 Days #8 tablet Continued Aspirin 81 mg PO DAILY Metformin HCl [Glucophage Xr] 750 mg PO QPM Amlodipine Besylate 10 mg PO DAILY Metoprolol Tartrate 100 mg PO BID Loperamide HCl [Imodium A-D] 2 mg PO Q6H PRN #90 capsule PRN Reason: Diarrhea Ferrous Sulfate [Iron] 325 mg PO BID #60 tablet Glimepiride [Amaryl] 2 mg PO BID Losartan/Hydrochlorothiazide [Losartan-Hctz 100-12.5 mg Tab] 0.5 tab PO DAILY Pravastatin Sodium [Pravachol] 20 mg PO HS Cyanocobalamin (Vitamin B-12) [Vitamin B12] 1,000 mcg PO DAILY Home Medications: Pravastatin Sodium [Pravachol] 20 mg PO HS 05/16/15 [History] Aspirin 81 mg PO DAILY 07/01/16 [History] Cyanocobalamin (Vitamin B-12) [Vitamin B12] 1,000 mcg PO DAILY 07/02/18 [History] Metformin HCl [Glucophage Xr] 750 mg PO QPM 11/09/18 [History] Amlodipine Besylate 10 mg PO DAILY 11/29/18 [History] Metoprolol Tartrate 100 mg PO BID 11/30/18 [History] Loperamide HCl [Imodium A-D] 2 mg PO Q6H PRN #90 capsule 02/08/19 [Rx] Ferrous Sulfate [Iron] 325 mg PO BID #60 tablet 03/21/19 [Rx] Glimepiride [Amaryl] 2 mg PO BID 05/16/19 [History] Losartan/Hydrochlorothiazide [Losartan-Hctz 100-12.5 mg Tab] 0.5 tab PO DAILY 05/16/19 [History] Amoxicillin/Clavulanate [Augmentin] 875 mg PO BIDWM 7 Days #8 tablet 05/19/19 [Rx] Ondansetron HCl [Zofran] 4 mg PO Q8HR PRN #14 tab 05/19/19 [Rx] OxyCODONE Immed Rel [Roxicodone 5 MG] 5 mg PO Q6HR PRN 5 Days #20 tablet 05/19/19 [Rx] Allergies/Adverse Reactions: Allergy/AdvReac Type Severity Reaction Status Date / Time pioglitazone [From Actos] Allergy See Verified 05/03/19 14:32 Comments Date of admission: 05/17/19 10:21 Primary care physician: Sun June Consults: 05/17/19 10:22 Consult to Physical Therapy [CONS] Routine Comment: Evaluate, develop and implement POC Reason for Consult: mobilization and discharge planning; uses walker at home Does patient have active BEDREST order?: No Is patient medically & hemodynamically stable?: Yes Patient assessed for mobility or mobilized this visit?: No 05/17/19 10:23 Consult to Nutrition [CONS] Routine Comment: ileostomy takedown diet Consulting Provider: NUTRITION Reason for Dietary Consult: Diet Education 05/18/19 09:44 Consult to Invasive Line Access Team [CONS] Routine Reason for Consult: LIMITED ACCESS stuck 5 times Line Type: EPIV Labs on day of discharge: Labs from last 24 hours 05/19/19 05/19/19 05/18/19 03:40 03:40 18:08 WBC 7.0 RBC 2.48 L Hgb 8.2 L Hct 26.0 L MCV 104.8 H MCH 33.1 MCHC 31.5 L RDW 13.9 Plt Count 165 MPV 8.9 L Immature Gran % 0.4 Seg Neutrophils % 80.9 Lymphocytes % 8.6 Monocytes % 8.3 Eosinophils % 1.4 Basophils % 0.4 Neutrophils # 5.6 Lymphocytes # 0.6 Monocytes # 0.6 Eosinophils # 0.1 Basophils # 0.0 Sodium 140 Potassium 4.0 Chloride 113 H Carbon Dioxide 20 L BUN 19 Creatinine 1.24 H Est GFR ( Amer) 52 L Est GFR (Non-Af Amer) 43 L BUN/Creatinine Ratio 15 Glucose 131 H POC Glucose 81 Calculated Osmolality 294 Calcium 8.6 05/18/19 05/18/19 05/18/19 17:29 17:28 11:04 WBC RBC Hgb Hct MCV MCH MCHC RDW Plt Count MPV Immature Gran % Seg Neutrophils % Lymphocytes % Monocytes % Eosinophils % Basophils % Neutrophils # Lymphocytes # Monocytes # Eosinophils # Basophils # Sodium Potassium Chloride Carbon Dioxide BUN Creatinine Est GFR ( Amer) Est GFR (Non-Af Amer) BUN/Creatinine Ratio Glucose POC Glucose 56 L 55 L 204 H Calculated Osmolality Calcium 05/17/19 20:33 WBC RBC Hgb Hct MCV MCH MCHC RDW Plt Count MPV Immature Gran % Seg Neutrophils % Lymphocytes % Monocytes % Eosinophils % Basophils % Neutrophils # Lymphocytes # Monocytes # Eosinophils # Basophils # Sodium Potassium Chloride Carbon Dioxide BUN Creatinine Est GFR ( Amer) Est GFR (Non-Af Amer) BUN/Creatinine Ratio Glucose POC Glucose 124 H Calculated Osmolality Calcium - Patient Status Disposition: Home Health Service Condition: Fair Functional capacity at discharge: uses cane/walker Overall status at discharge: patient is progressing back to baseline - Discharge Instructions Instructions: Ileostomy Closure (DC) Follow Up With: Sun June MD [Primary Care Provider] - Rosario Santana MD [Partnered Physician] - 06/01/19 9:05 am Additional Instructions: General Surgical Discharge Instructions 1. No pushing, pulling, or lifting greater than 15 lbs for 6 weeks. 2. You may remove your dressings and shower beginning today, but no tub baths, soaking, or swimming for 2 weeks. 3. No driving for one weeks unless otherwise specified and then you may resume driving when you are off narcotics and are safe to react in a car. 4. Apply ice 20 minutes every hour that you are awake to your abdomen and [id number] mg Tylenol every 6 hours for discomfort. If this does not relieve discomfort, you may take the as needed Oxycodone. Eat a small snack with pain medication as this will help reduce the risk of nausea. Take narcotics as directed. Do not take more narcotics then directed and do not share your narcotics with any other person. Do not drink alcohol while on narcotics. You can take the Zofran/ondansetron if needed for nausea or with a dose of narcotics to prevent nausea. 5. Take immodium as directed for diarrhea. Drink AT LEAST 64 ounces of fluids d aily and avoid sugary drinks. 6. Report any fevers greater than 100.5F, increase abdominal discomfort, drainage that looks like pus, increased redness or pain at the surgical site, or any vomiting. 7. Report any pain in the calves, shortness of breath, or rapid heartbeat. 8. Follow-up in the office as directed. 9. If you were prescribed antibiotics, do not stop them without talking to your provider. Daily Wound Care: Remove dressing and packing. Repack with 1/4 inch plain gauze (for wicking purposes only. Do not pack into the abdominal wall). Cover with a dry dressing. - Diet and Activity Activity: ambulate only with your walker, as per physical therapy, increase activity as tolerated Diet: other (Low residue diet, then increase as directed)
[2019-05-19] MEDS ORDERED: *HR* Glimepiride 4 MG TABLET PO SCH (09:00)
[2019-05-19] MEDS ORDERED: Aspirin 81 MG TAB.CHEW PO SCH (09:00)
[2019-05-19] MEDS: Pantoprazole 40 MG VIAL IVP SCH (09:10)
[2019-05-19] MEDS: Insulin LISPRO 300 UNITS/3 ML VIAL SQ SCH ×2 (09:10→13:32)
[2019-05-19] MEDS: amLODIPine 5 MG TABLET PO SCH (09:11)
[2019-05-19] MEDS: Metoprolol 100 MG TABLET PO SCH (09:11)
--- NOTE | 2019-05-19 13:39 | Physician Discharge Referral ---
Home Health/Hosp Referral Info Transfer to: Home Health Attending Provider: Dr. Rosario Chapman Provider in Charge Post Discharge: PCP - Diagnosis (1) History of low anterior resection of rectum Priority: Primary Status: Acute (2) Rectal cancer Priority: Primary Status: Chronic (3) Hypertension associated with stage 3 chronic kidney disease due to type 2 diabetes mellitus Priority: Secondary Status: Chronic (4) Diabetes mellitus Priority: Secondary Status: Chronic - Respiratory Orders Smoking Cessation: Smoking cessation has been advised. For more information, call the [place] Tobacco Quit Line at 6-811-OXED-NOW. - Diet/Nutrition Diet/Nutrition: List: Low fiber diabetic diet, then increase to high-fiber as tolerated. - Activity Activity Orders: Up ad ozzie, Walker - Services Needed Following services are medically necessary services: Nursing, Physical Therapy, Occupational Therapy Other Treatments: General Surgical Discharge Instructions 1. No pushing, pulling, or lifting greater than 15 lbs for 6 weeks. 2. You may remove your dressings and shower beginning today, but no tub baths, soaking, or swimming for 2 weeks. 3. No driving for one weeks unless otherwise specified and then you may resume driving when you are off narcotics and are safe to react in a car. 4. Apply ice 20 minutes every hour that you are awake to your abdomen and [id number] mg Tylenol every 6 hours for discomfort. If this does not relieve discomfort, you may take the as needed Oxycodone. Eat a small snack with pain medication as this will help reduce the risk of nausea. Take narcotics as directed. Do not take more narcotics then directed and do not share your narcotics with any other person. Do not drink alcohol while on narcotics. You can take the Zofran/ondansetron if needed for nausea or with a dose of narcotics to prevent nausea. 5. Take immodium as directed for diarrhea. Drink AT LEAST 64 ounces of fluids daily and avoid sugary drinks. 6. Report any fevers greater than 100.5F, increase abdominal discomfort, drainage that looks like pus, increased redness or pain at the surgical site, or any vomiting. 7. Report any pain in the calves, shortness of breath, or rapid heartbeat. 8. Follow-up in the office as directed. 9. If you were prescribed antibiotics, do not stop them without talking to your provider. Daily Wound Care: Remove dressing and packing. Repack with 1/4 inch plain gauze (for wicking purposes only. Do not pack into the abdominal wall). Cover with a dry dressing. - Transfer Medications Prescriptions: Amoxicillin/Clavulanate [Augmentin] 875 mg PO BIDWM 7 Days #8 tablet OxyCODONE Immed Rel [Roxicodone 5 MG] 5 mg PO Q6HR PRN 5 Days #20 tablet PRN Reason: Severe Pain Ondansetron HCl [Zofran] 4 mg PO Q8HR PRN #14 tab PRN Reason: Nausea Home Medications: Pravastatin Sodium [Pravachol] 20 mg PO HS 05/16/15 [History] Aspirin 81 mg PO DAILY 07/01/16 [History] Cyanocobalamin (Vitamin B-12) [Vitamin B12] 1,000 mcg PO DAILY 07/02/18 [History] Metformin HCl [Glucophage Xr] 750 mg PO QPM 11/09/18 [History] Amlodipine Besylate 10 mg PO DAILY 11/29/18 [History] Metoprolol Tartrate 100 mg PO BID 11/30/18 [History] Loperamide HCl [Imodium A-D] 2 mg PO Q6H PRN #90 capsule 02/08/19 [Rx] Ferrous Sulfate [Iron] 325 mg PO BID #60 tablet 03/21/19 [Rx] Glimepiride [Amaryl] 2 mg PO BID 05/16/19 [History] Losartan/Hydrochlorothiazide [Losartan-Hctz 100-12.5 mg Tab] 0.5 tab PO DAILY 05/16/19 [History] Amoxicillin/Clavulanate [Augmentin] 875 mg PO BIDWM 7 Days #8 tablet 05/19/19 [Rx] Ondansetron HCl [Zofran] 4 mg PO Q8HR PRN #14 tab 05/19/19 [Rx] OxyCODONE Immed Rel [Roxicodone 5 MG] 5 mg PO Q6HR PRN 5 Days #20 tablet 05/19/19 [Rx] Allergies/Adverse Reactions: Allergy/AdvReac Type Severity Reaction Status Date / Time pioglitazone [From Actos] Allergy See Verified 05/03/19 14:32 Comments Certification: Further, I certify that my clinical findings support that this patient is homebound (i.e. absences from home require considerable and taxing effort and are for medical reasons or temple services or infrequently or short duration when for other reasons) because: Homebound Reason: Leaving home requires considerable and taxing effort due to condition Attestation: My signature below is to certify that this patient is under my care and that I, or nurse practitioner, or a physician's human services assistant working with me, has a [id number] encounter with this patient.
[2019-05-19] MEDS ORDERED: FLU Vac QV 19-20 (6Month+)/PF 0.5 ML SYRINGE IM ONE (14:49)
[2019-05-19 15:06] VITALS: BP 117/70
== END 2019-05-19 16:20 | disposition home health service (06) | DRG 331 ==
LOC: SAMDAY 11:29 → 3ANU 17:54
PROVIDERS: ADMIT Surgery; ATTEND Surgery

== ENCOUNTER 2019-05-23 19:34 | Inpatient (IN) ==
[2019-05-24] MEDS: 0.9 % Sodium Chloride 1,000 ML IVC SCH ×3 (01:36→20:40)
[2019-05-24] MEDS: *HR* Heparin 5,000 UNIT/ML VIAL SQ SCH ×2 (05:42→17:29)
[2019-05-24] MEDS: Acetaminophen IV 1,000 MG/100 ML INFUS..BTL IVPB SCH ×3 (05:44→18:11)
[2019-05-24] MEDS ORDERED: *HR* Metoprolol 5 MG/5 ML VIAL IVP PRN (07:44)
[2019-05-24] MEDS ORDERED: *HR* Promethazine 25 MG/ML VIAL IVP PRN (07:44)
[2019-05-24] MEDS ORDERED: Naloxone 0.4 MG/ML INJ IVP PRN (07:44)
[2019-05-24] MEDS ORDERED: D5% in Water 1,000 ML IVC PRN (08:22)
[2019-05-24] MEDS ORDERED: Dextrose Gel 15 GM/37.5 ML TUBE PO PRN ×2 (08:22)
[2019-05-24] MEDS ORDERED: *HR* Dextrose 50 % in Water (Syg) 50 ML SYRINGE IVP PRN (08:22)
[2019-05-24 08:34] LABS: Basophils % 0.2 %; Eosinophils # 0.1 K/mcL (0.0-0.6); Eosinophils % 1.2 %; Hematocrit 25.6 % (35.3-44.9); Hemoglobin 8.3 g/dL (11.5-15.4); Immature Granulocytes % 0.5 % (0-4); Lymphocytes # 0.6 K/mcL (0.6-4.6); Lymphocytes % 9.8 %; Mean Corpuscular HGB Conc 32.4 g/dL (31.6-35.5); Mean Corpuscular Hemoglobin 32.7 pg (28.0-33.3); Mean Corpuscular Volume 100.8 fL (83.0-100.0); Mean Platelet Volume 8.5 fL (9.4-12.4); Monocytes # 0.4 K/mcL (0.0-1.3); Neutrophils # 4.6 K/mcL (1.6-8.9); Platelet Count 301 K/mcL (140-400); Red Blood Count 2.54 M/mcL (3.82-4.97); Segmented Neutrophils % 81.3 %; White Blood Count 5.6 K/mcL (4.3-11.1)
[2019-05-24 08:55] LABS: Calcium 8.8 mg/dL (8.6-10.3); Magnesium 1.6 mg/dL (1.6-2.6); Potassium 3.4 mEq/L (3.5-5.1)
[2019-05-24] MEDS ORDERED: Lidocaine Viscous Oral Soln 15 ML SOLUTION MM STA (08:55)
[2019-05-24] MEDS ORDERED: Lidocaine Jelly 11 ml Syringe TP STA (08:55)
[2019-05-24] MEDS: Pantoprazole 40 MG VIAL IVP SCH (09:13)
[2019-05-24] MEDS ORDERED: Chloraseptic Spray 177 ML BOTTLE MM PRN (09:52)
[2019-05-24] MEDS ORDERED: Saliva Stimulant 100ml BOTTLE PO PRN (09:52)
--- NOTE | 2019-05-24 09:52 | General Surg History&Physical ---
<Reyna Garza - Last Filed: 05/24/19 10:37> Date of Encounter: 05/24/19 Time of Encounter: 08:40 Assessment and Plan (1) Postoperative ileus Current Visit: Yes Status: Acute The assessment and plan as outlined above was discussed with the patient and/or family members who expressed understanding and agreement. All questions were answered. NG placed per Coulters was nt vented. Ng replaced per this INSTRUCTOR DANCING. Pt tolerated well. Immediate return of moderate amount of air and 500 ml bilious material. KUB is with abnormal bowel gas pattern and tip of NG projects over body of stomach. There are no bowel sounds present. She is tympanic and is not in pain. Suspect severe ileus vs pSBO. Will give methylnaltrexone x1 Continue NG to LIWS May have limited ice chips for comfort Biotene Chloraseptic EPCDs Hep SQ Repeat KUB in am, consider SBFT with gastrograffin pending IVF (2) Status post reversal of ileostomy Current Visit: Yes Status: Acute Incision is c/d/i. No evidence for concern of infection. Can stop packing and continue daily dressing changes (3) Chronic kidney disease (CKD) Current Visit: Yes Status: Acute Creatinine is at baseline. Continue to closely monitor Qualifiers: Chronic kidney disease stage: stage 3 (moderate) Qualified Code(s): N18.3 - Chronic kidney disease, stage 3 (moderate) (4) Hypertension Current Visit: Yes Status: Acute Currently normotensive. Add prn antihypertensives resume home meds when applicable Qualifiers: Hypertension type: secondary to endocrine disorders Qualified Code(s): I15.2 - Hypertension secondary to endocrine disorders (5) T2DM (type 2 diabetes mellitus) Current Visit: Yes Status: Chronic SSI and Q6H accuchecks Qualifiers: Diabetes mellitus assisted insulin use: without assisted use Diabetes mellitus complication status: with kidney complications Diabetes mellitus complication detail: with chronic kidney disease Chronic kidney disease stage: stage 3 (moderate) Qualified Code(s): E11.22 - Type 2 diabetes mellitus with diabetic chronic kidney disease; N18.3 - Chronic kidney disease, stage 3 (moderate) History of Present Illness Chief complaint: abdominal pain and vomiting HPI: Ms. Aviles is a 68 year old female who well known to [facility]. She recently underwent ileostomy take down on 05/16/[address] Santana. Her postoperative course was uncomplicated. She was noted to have had spillage during her operative course was therefore kept in the hospital for IV antibiotics. She was discharged to home on 05/19/2019. She reports at home she was doing well, had BMs and passing flatus until yesterday she began having left lower quadrant pain that was sharp, stabbing, 8/10, no aggravating or alleviating factors, fevered/chilled 9did not have thermometer to check temp) and vomiting for which she went to [facility] emergency department. She had no other complaints. She had a CT of the abdomen and pelvis which was concerning for dilated small bowel and evidence of partial small bowel obstruction versus severe ileus. And NG tube was placed and she was transferred to [facility] for further workup and treatment. While at [facility] emergency department her creatinine was noted to be 1.76, her baseline is ~1.58, WBC is normal. She states since the NG has resolved she is feeling much better. She has not passed gas, feels less distended, and has no pain presently. Past Med Surg Social Fam HX - Past Medical History Source: patient Medical history: cancer, diabetes, hyperlipidemia, hypertension, renal disease, TIA, other Additional medical history: rectal cancer - hx Psychiatric history: no psych history - Past Surgical History Surgical History: hysterectomy, JOSE LUIS/BSO, other Additional surgical history: Hysterectomy. Colonoscopy. L breast bx. bladder repair. ileostomy and reversal - Social History Smoking Status: Never smoker Smokeless Tobacco Status: No Alcohol use: none Drug use: none Occupational status: unemployed Current living situation: Home - Independent Activity Level: Independent ambulation Recent Out of Country Travel Within the Last 8 Weeks: No Exposure or Possible Exposure to Illness During Travel: No - Family History Mother Living Status: Age at : 74 Cause of : IN Hx Family Cardiac Disorders: Yes Father Living Status: Age at : 32 Cause of : Ran over by auto Medications and Allergies Pravastatin Sodium [Pravachol] 20 mg PO HS 05/16/15 [History] Aspirin 81 mg PO DAILY 07/01/16 [History] Cyanocobalamin (Vitamin B-12) [Vitamin B12] 1,000 mcg PO DAILY 07/02/18 [History] Metformin HCl [Glucophage Xr] 750 mg PO QPM 11/09/18 [History] Amlodipine Besylate 10 mg PO DAILY 11/29/18 [History] Metoprolol Tartrate 100 mg PO BID 11/30/18 [History] Ferrous Sulfate [Iron] 325 mg PO BID #60 tablet 03/21/19 [Rx] Glimepiride [Amaryl] 2 mg PO BID 05/16/19 [History] Losartan/Hydrochlorothiazide [Losartan-Hctz 100-12.5 mg Tab] 0.5 tab PO DAILY 05/16/19 [History] Ondansetron HCl [Zofran] 4 mg PO Q8HR PRN #14 tab 05/19/19 [Rx] OxyCODONE Immed Rel [Roxicodone 5 MG] 5 mg PO Q6HR PRN 5 Days #20 tablet 05/19/19 [Rx] Allergy/AdvReac Type Severity Reaction Status Date / Time pioglitazone [From Actos] Allergy See Verified 05/23/19 18:21 Comments Review of Systems All systems PM: reviewed and no additional remarkable complaints except as stated All systems PM: The remainder of the systems were reviewed and are negative General Surgery Exam Initial Vital Signs Temp Pulse Resp BP Pulse Ox 98.5 F 76 17 114/66 90 05/23/19 21:22 05/23/19 21:22 05/23/19 21:22 05/23/19 21:22 05/23/19 21:22 VITAL SIGNS: Reviewed. See [facility] GENERAL: In no apparent distress. HEENT: Normocephalic, atraumatic, pupils are equal and reactive, extraocular motions intact, NG secured in the right nares, oropharynx is pink and moist, there is no neck adenopathy or JVD noted. CHEST/RESPIRATORY: The thorax is free from signs of trauma. Lung sounds: clear to auscultation, normal respiratory effort CARDIAC: Regular rate and rhythm. Normal S1 and S2, without murmurs, gallops, or rubs. VASCULAR: No Edema. 2+ peripheral pulses. ABDOMEN: soft, distended, tympanic, absent bowel sounds, surgical incision is clean, dry, and intact. There is a very small amount of packing with minimal serous drainage noted. MUSCULOSKELETAL: Good range of motion of all major joints. Extremities without clubbing, cyanosis or edema. NEUROLOGIC EXAM: Alert and oriented x 3. Speech normal. Follows commands. PSYCHIATRIC: Mood normal. SKIN: No rash or lesions. Results - Labs 05/24/19 08:07 05/24/19 08:07 Abnormal lab results RBC 2.54 M/mcL (3.82-4.97) L 05/24/19 08:07 Hgb 8.3 g/dL (11.5-15.4) L 05/24/19 08:07 Hct 25.6 % (35.3-44.9) L 05/24/19 08:07 MCV 100.8 fL (83.0-100.0) H 05/24/19 08:07 MPV 8.5 fL (9.4-12.4) L 05/24/19 08:07 Potassium 3.4 mEq/L (3.5-5.1) L 05/24/19 08:07 Chloride 110 mEq/L (98-107) H 05/24/19 08:07 BUN 28 mg/dL (8-23) H 05/24/19 08:07 Creatinine 1.48 mg/dL (0.60-1.20) H 05/24/19 08:07 Est GFR ( Amer) 43 (> 60) L 05/24/19 08:07 Est GFR (Non-Af Amer) 35 (> 60) L 05/24/19 08:07 Glucose 176 mg/dL (70-105) H 05/24/19 08:07 POC Glucose 217 mg/dL (70-99) H 05/24/19 05:27 Calculated Osmolality 304 (280-300) H 05/24/19 08:07 Diabetes panel 05/24/19 Range/Units 08:07 Sodium 142 (136-145) mEq/L Potassium 3.4 L (3.5-5.1) mEq/L Chloride 110 H (98-107) mEq/L Carbon Dioxide 23 (23-29) mEq/L BUN 28 H (8-23) mg/dL Creatinine 1.48 H (0.60-1.20) mg/dL Glucose 176 H (70-105) mg/dL Calcium 8.8 (8.6-10.3) mg/dL Calcium panel 05/24/19 Range/Units 08:07 Calcium 8.8 (8.6-10.3) mg/dL Phosphorus 4.0 (2.7-4.5) mg/dL Pituitary panel 05/24/19 Range/Units 08:07 Sodium 142 (136-145) mEq/L Potassium 3.4 L (3.5-5.1) mEq/L Chloride 110 H (98-107) mEq/L Carbon Dioxide 23 (23-29) mEq/L BUN 28 H (8-23) mg/dL Creatinine 1.48 H (0.60-1.20) mg/dL Glucose 176 H (70-105) mg/dL Calcium 8.8 (8.6-10.3) mg/dL Adrenal panel 05/24/19 Range/Units 08:07 Sodium 142 (136-145) mEq/L Potassium 3.4 L (3.5-5.1) mEq/L Chloride 110 H (98-107) mEq/L Carbon Dioxide 23 (23-29) mEq/L BUN 28 H (8-23) mg/dL Creatinine 1.48 H (0.60-1.20) mg/dL Glucose 176 H (70-105) mg/dL Calcium 8.8 (8.6-10.3) mg/dL All other labs normal. - Imaging CT scan - abdomen: report reviewed CT scan - pelvis: report reviewed <Rosario Santana - Last Filed: 05/24/19 15:58> Date of Encounter: 05/24/19 Time of Encounter: 15:51 Assessment and Plan (1) Postoperative ileus Current Visit: Yes Status: Acute The assessment and plan as outlined above was discussed with the patient and/or family members who expressed understanding and agreement. All questions were answered. agree with CASTING AND CURING OPERATOR, no bowel sounds, nontender, still distended but less than yesterday per patient, no flatus await return of bowel function start reglan (2) Status post reversal of ileostomy Current Visit: Yes Status: Acute The assessment and plan as outlined above was discussed with the patient and/or family members who expressed understanding and agreement. All questions were answered. wound healing well, daily dressing changes (3) Chronic kidney disease (CKD) Current Visit: Yes Status: Acute The assessment and plan as outlined above was discussed with the patient and/or family members who expressed understanding and agreement. All questions were answered. CKD Cr elevated at baseline Qualifiers: Chronic kidney disease stage: stage 3 (moderate) Qualified Code(s): N18.3 - Chronic kidney disease, stage 3 (moderate) (4) Hypertension Current Visit: Yes Status: Acute The assessment and plan as outlined above was discussed with the patient and/or family members who expressed understanding and agreement. All questions were answered. prn lopressor, normal BP currently, monitor Qualifiers: Hypertension type: secondary to endocrine disorders Qualified Code(s): I15.2 - Hypertension secondary to endocrine disorders (5) T2DM (type 2 diabetes mellitus) Current Visit: Yes Status: Chronic The assessment and plan as outlined above was discussed with the patient and/or family members who expressed understanding and agreement. All questions were answered. Qualifiers: Diabetes mellitus assisted insulin use: without assisted use Diabetes mellitus complication status: with kidney complications Diabetes mellitus complication detail: with chronic kidney disease Chronic kidney disease stage: stage 3 (moderate) Qualified Code(s): E11.22 - Type 2 diabetes mellitus with diabetic chronic kidney disease; N18.3 - Chronic kidney disease, stage 3 (moderate) History of Present Illness HPI: Ms. Aviles is a 68 year old female who had rectal cancer, underwent neoadjuvant therapy, robotic LAR with diverting loop ileostomy, adjuvant chemotherapy, reversal of loop ileostomy 1 week ago. She was tolerating diet and passing flatus and having bm's at home until yesterday she started having generalized abdominal pain. Pain progressed throughout the day with abdominal distention and nausea /vomiting. She went to [facility] ED and CT was done - sbo vs ileus. She is not passing flatus. Pain is improved and now gone with ngt decompression. No further nausea. Past Med Surg Social Fam HX - Past Medical History Source: patient Medical history: cancer (rectal) - Past Surgical History Additional surgical history: robotic LAR, loop ileostomy. ileostomy reversal Review of Systems All systems PM: reviewed and no additional remarkable complaints except as stated All systems PM: The remainder of the systems were reviewed and are negative General Surgery Exam Initial Vital Signs Temp Pulse Resp BP Pulse Ox 98.5 F 76 17 114/66 90 05/23/19 21:22 05/23/19 21:22 05/23/19 21:22 05/23/19 21:22 05/23/19 21:22 - General physical appearance well developed, well nourished, no distress, no pain - Eyes PERRL, normal ocular movement - ENT normal mucosa, normocephalic - Neck trachea midline - Respiratory normal expansion, clear to auscultation - Cardiovascular Cardiovascular exam: Present: RRR - Abdomen Abdomen general surgery: Present: bowel sounds present, soft, non tender, distended. Absent: guarding, rebound - Incision Incision: Present: clean and dry (packed, no erythema or drainage) - Integumentary Integumentary general surgery: Present: warm and dry - Neurologic Present: CN 2-12 grossly intact - Musculoskeletal Present: normal posture - Psychiatric Psychiatric general surgery: Present: A&Ox3 Results - Labs 05/24/19 08:07 05/24/19 08:07 Abnormal lab results RBC 2.54 M/mcL (3.82-4.97) L 05/24/19 08:07 Hgb 8.3 g/dL (11.5-15.4) L 05/24/19 08:07 Hct 25.6 % (35.3-44.9) L 05/24/19 08:07 MCV 100.8 fL (83.0-100.0) H 05/24/19 08:07 MPV 8.5 fL (9.4-12.4) L 05/24/19 08:07 Potassium 3.4 mEq/L (3.5-5.1) L 05/24/19 08:07 Chloride 110 mEq/L (98-107) H 05/24/19 08:07 BUN 28 mg/dL (8-23) H 05/24/19 08:07 Creatinine 1.48 mg/dL (0.60-1.20) H 05/24/19 08:07 Est GFR ( Amer) 43 (> 60) L 05/24/19 08:07 Est GFR (Non-Af Amer) 35 (> 60) L 05/24/19 08:07 Glucose 176 mg/dL (70-105) H 05/24/19 08:07 POC Glucose 217 mg/dL (70-99) H 05/24/19 05:27 Calculated Osmolality 304 (280-300) H 05/24/19 08:07 Diabetes panel 05/24/19 Range/Units 08:07 Sodium 142 (136-145) mEq/L Potassium 3.4 L (3.5-5.1) mEq/L Chloride 110 H (98-107) mEq/L Carbon Dioxide 23 (23-29) mEq/L BUN 28 H (8-23) mg/dL Creatinine 1.48 H (0.60-1.20) mg/dL Glucose 176 H (70-105) mg/dL Calcium 8.8 (8.6-10.3) mg/dL Calcium panel 05/24/19 Range/Units 08:07 Calcium 8.8 (8.6-10.3) mg/dL Phosphorus 4.0 (2.7-4.5) mg/dL Pituitary panel 05/24/19 Range/Units 08:07 Sodium 142 (136-145) mEq/L Potassium 3.4 L (3.5-5.1) mEq/L Chloride 110 H (98-107) mEq/L Carbon Dioxide 23 (23-29) mEq/L BUN 28 H (8-23) mg/dL Creatinine 1.48 H (0.60-1.20) mg/dL Glucose 176 H (70-105) mg/dL Calcium 8.8 (8.6-10.3) mg/dL Adrenal panel 05/24/19 Range/Units 08:07 Sodium 142 (136-145) mEq/L Potassium 3.4 L (3.5-5.1) mEq/L Chloride 110 H (98-107) mEq/L Carbon Dioxide 23 (23-29) mEq/L BUN 28 H (8-23) mg/dL Creatinine 1.48 H (0.60-1.20) mg/dL Glucose 176 H (70-105) mg/dL Calcium 8.8 (8.6-10.3) mg/dL All other labs normal. - Imaging CT scan - abdomen: report reviewed, image reviewed CT scan - pelvis: report reviewed, image reviewed - Attending Attestation I have personally performed a face to face evaluation on this patient. I have reviewed and agree with the care plan. History and Exam by me shows:
[2019-05-24] MEDS ORDERED: Methylnaltrexone 12 MG/0.6 ML SYRINGE SQ ONE (10:32)
[2019-05-24] MEDS ORDERED: Potassium Chloride 20 MEQ, Lidocaine 1% 2 ML in 0.9 % Sodium Chloride 250 ML IVPB ONE (11:19)
[2019-05-24] MEDS: Insulin LISPRO 300 UNITS/3 ML VIAL SQ SCH ×2 (12:22→18:03)
[2019-05-24] MEDS: Metoclopramide 10 MG/2 ML VIAL IVP SCH (17:29)
[2019-05-25] MEDS: Metoclopramide 10 MG/2 ML VIAL IVP SCH ×4 (00:03→17:01)
[2019-05-25] MEDS: Acetaminophen IV 1,000 MG/100 ML INFUS..BTL IVPB SCH ×4 (00:03→17:27)
[2019-05-25] MEDS: Insulin LISPRO 300 UNITS/3 ML VIAL SQ SCH ×4 (00:16→17:08)
[2019-05-25] MEDS: *HR* Heparin 5,000 UNIT/ML VIAL SQ SCH ×2 (05:31→17:01)
[2019-05-25] MEDS: Pantoprazole 40 MG VIAL IVP SCH (09:32)
--- NOTE | 2019-05-25 10:50 | General Surgery Progress Note ---
<Judy Tinajero Sunny - Last Filed: 05/25/19 11:40> Date of Encounter: 05/25/19 Time of Encounter: 10:40 - Assessment and Plan (1) Postoperative ileus Current Visit: Yes Status: Acute Continue with conservative therapy and await return of bowel function NPO NG tube to LIWS IV fluids s/p methylnaltrexone 05/24/19, may repeat 05/26/19 if continued lack of bowel function Supportive care IS every 1 hour while awake GI/DVT prophylaxis Serial abdominal exams Monitor I&Os (2) Chronic kidney disease (CKD) Current Visit: Yes Status: Acute Stable Continue to monitor Qualifiers: Chronic kidney disease stage: stage 3 (moderate) Qualified Code(s): N18.3 - Chronic kidney disease, stage 3 (moderate) (3) Hypertension Current Visit: Yes Status: Acute Stable Metoprolol prn Qualifiers: Hypertension type: secondary to endocrine disorders Qualified Code(s): I15.2 - Hypertension secondary to endocrine disorders (4) T2DM (type 2 diabetes mellitus) Current Visit: Yes Status: Chronic Continue SSI Will continue to monitor and adjust as necessary Qualifiers: Diabetes mellitus termite exterminator helper insulin use: without termite exterminator helper use Diabetes mellitus complication status: with kidney complications Diabetes mellitus complication detail: with chronic kidney disease Chronic kidney disease stage: stage 3 (moderate) Qualified Code(s): E11.22 - Type 2 diabetes mellitus with diabetic chronic kidney disease; N18.3 - Chronic kidney disease, stage 3 (moderate) Subjective Patient reports: feels better, voiding w/o difficulty, no flatus, no bowel movement, afebrile Objective Vital Signs - Last 8 Hours Temp Pulse Resp BP Pulse Ox 05/25/19 10:48 97.7 F 72 15 129/76 96 05/25/19 06:29 98.4 F 78 15 116/73 96 05/25/19 04:18 97.9 F 79 16 132/70 97 Intake and Output 05/24/19 05/25/19 05/25/19 23:59 07:59 15:59 Intake Total 1100 / 2300 670 / 670 0 / 670 Output Total 0 / 1750 150 / 150 0 / 150 Balance 1100 / 550 520 / 520 0 / 520 Intake: IV Fluids 1100 / 2300 670 / 670 0.9 % Sodium Chloride 1,000 ML 1000 / 2000 470 / 470 @ 100 mls/hr IVC .Q10H [facility] Rx#: [id number] Ofirmev 1,000 mg/100 ml 1,000 100 / 300 200 / 200 mg In 100 ml @ 400 mls/hr IVPB Q6HR [facility] Rx#:[id number] Oral 0 / 0 Output: Urine 0 / 0 Gastric Drainage 0 / 900 150 / 150 0 / 150 Right Nare 0 / 900 100 / 100 Other: Meal npo Percent of Meal Consumed 0% # Voids 1 Blood Glucose* 85 127 - General physical appearance well developed, well nourished, no distress - Eyes normal ocular movement - ENT normal mucosa, atraumatic, normocephalic - Neck Neck exam: trachea midline - Respiratory normal respiratory effort, clear to auscultation - Cardiovascular Cardiovascular exam: Present: RRR - Abdomen Abdomen: Present: bowel sounds present (hypoactive), soft, tender (minimal around surgical incision), wound (NG tube to LIWS with bilious drainage noted (approximately 400ml noted since midnight)) - Incision Incision: Present: clean and dry, intact - Neurologic CN 2-12 grossly intact - Psychiatric oriented to time, oriented to person, oriented to place, speech is normal, memory intact - Labs 05/25/19 10:40 05/25/19 10:40 Consult Discharge Plan - Plan Referrals: Sun June MD [Primary Care Provider] - - Attending Attestation For this encounter, I have reviewed the OPERATIONS MANAGER/COORDINATOR or PA documentation, treatment plan, and medical decision making; and I have had face to face time with this patient. <Rosario Santana - Last Filed: 05/26/19 20:40> Date of Encounter: 05/25/19 Time of Encounter: 12:30 - Assessment and Plan (1) Postoperative ileus Current Visit: Yes Status: Acute continue conservative therapy very hypoactive bowel sounds today continue ngt to liws ivf hydration prn pain control gi/dvt prophylaxis serial abdominal exams continue reglan (2) Status post reversal of ileostomy Current Visit: Yes Status: Acute (3) Chronic kidney disease (CKD) Current Visit: Yes Status: Chronic Qualifiers: Chronic kidney disease stage: stage 3 (moderate) Qualified Code(s): N18.3 - Chronic kidney disease, stage 3 (moderate) (4) Hypertension Current Visit: Yes Status: Chronic Qualifiers: Hypertension type: secondary to endocrine disorders Qualified Code(s): I15.2 - Hypertension secondary to endocrine disorders (5) T2DM (type 2 diabetes mellitus) Current Visit: Yes Status: Chronic Qualifiers: Diabetes mellitus snf insulin use: without snf use Diabetes mellitus complication status: with kidney complications Diabetes mellitus complication detail: with chronic kidney disease Chronic kidney disease stage: stage 3 (moderate) Qualified Code(s): E11.22 - Type 2 diabetes mellitus with diabetic chronic kidney disease; N18.3 - Chronic kidney disease, stage 3 (moderate) Subjective Patient reports: no new complaints, feels better, voiding w/o difficulty, no flatus, no bowel movement, afebrile, other (no nausea, states she feels pretty good) Objective Vital Signs - Last 8 Hours Temp Pulse Resp BP Pulse Ox 05/25/19 13:48 98.4 F 80 15 128/74 94 05/25/19 10:48 97.7 F 72 15 129/76 96 Intake and Output 05/25/19 05/25/19 05/25/19 07:59 15:59 23:59 Intake Total 670 / 1300 630 / 1300 Output Total 150 / 750 600 / 750 Balance 520 / 550 30 / 550 Intake: IV Fluids 670 / 1300 630 / 1300 0.9 % Sodium Chloride 1,000 ML 470 / 1000 530 / 1000 @ 100 mls/hr IVC .Q10H [facility] Rx#: [id number] Ofirmev 1,000 mg/100 ml 1,000 200 / 300 100 / 300 mg In 100 ml @ 400 mls/hr IVPB Q6HR [facility] Rx#:[id number] Oral 0 / 0 Output: Urine 600 / 600 Gastric Drainage 150 / 150 0 / 150 Right Nare 100 / 100 Other: Meal npo Percent of Meal Consumed 0% # Voids 1 Blood Glucose* 127 142 - General physical appearance well developed, well nourished, no distress, no pain - Eyes PERRL, normal ocular movement - ENT normal mucosa, normocephalic - Cardiovascular Cardiovascular exam: Present: RRR - Abdomen Abdomen: Present: bowel sounds present, soft. Absent: distended, tender - Incision Incision: Present: clean and dry, intact - Neurologic CN 2-12 grossly intact - Musculoskeletal normal posture - Psychiatric oriented to time, oriented to person, speech is normal, memory intact - Labs 05/26/19 05:51 05/26/19 05:51 Diabetes panel 05/25/19 Range/Units 10:40 Sodium 140 (136-145) mEq/L Potassium 3.8 (3.5-5.1) mEq/L Chloride 110 H (98-107) mEq/L Carbon Dioxide 22 L (23-29) mEq/L BUN 16 (8-23) mg/dL Creatinine 1.02 (0.60-1.20) mg/dL Glucose 156 H (70-105) mg/dL Calcium 8.6 (8.6-10.3) mg/dL Calcium panel 05/25/19 Range/Units 10:40 Calcium 8.6 (8.6-10.3) mg/dL Phosphorus 2.7 (2.7-4.5) mg/dL Pituitary panel 05/25/19 Range/Units 10:40 Sodium 140 (136-145) mEq/L Potassium 3.8 (3.5-5.1) mEq/L Chloride 110 H (98-107) mEq/L Carbon Dioxide 22 L (23-29) mEq/L BUN 16 (8-23) mg/dL Creatinine 1.02 (0.60-1.20) mg/dL Glucose 156 H (70-105) mg/dL Calcium 8.6 (8.6-10.3) mg/dL Adrenal panel 05/25/19 Range/Units 10:40 Sodium 140 (136-145) mEq/L Potassium 3.8 (3.5-5.1) mEq/L Chloride 110 H (98-107) mEq/L Carbon Dioxide 22 L (23-29) mEq/L BUN 16 (8-23) mg/dL Creatinine 1.02 (0.60-1.20) mg/dL Glucose 156 H (70-105) mg/dL Calcium 8.6 (8.6-10.3) mg/dL - Attending Attestation I have personally performed a face to face evaluation on this patient. I have reviewed and agree with the care plan. History and Exam by me shows:
[2019-05-25 11:04] LABS: Basophils % 0.2 %; Eosinophils # 0.1 K/mcL (0.0-0.6); Eosinophils % 2.8 %; Hematocrit 27.3 % (35.3-44.9); Hemoglobin 8.6 g/dL (11.5-15.4); Immature Granulocytes % 0.9 % (0-4); Lymphocytes # 0.4 K/mcL (0.6-4.6); Lymphocytes % 9.7 %; Mean Corpuscular HGB Conc 31.5 g/dL (31.6-35.5); Mean Corpuscular Hemoglobin 33.3 pg (28.0-33.3); Mean Corpuscular Volume 105.8 fL (83.0-100.0); Mean Platelet Volume 8.4 fL (9.4-12.4); Monocytes # 0.3 K/mcL (0.0-1.3); Monocytes % 7.1 %; Neutrophils # 3.4 K/mcL (1.6-8.9); Platelet Count 271 K/mcL (140-400); Red Blood Count 2.58 M/mcL (3.82-4.97); Segmented Neutrophils % 79.3 %; White Blood Count 4.2 K/mcL (4.3-11.1)
[2019-05-25] MEDS: 0.9 % Sodium Chloride 1,000 ML IVC SCH ×3 (11:08→22:27)
[2019-05-25 11:21] LABS: BUN/Creatinine Ratio 16 (6-26); Blood Urea Nitrogen 16 mg/dL (8-23); Calcium 8.6 mg/dL (8.6-10.3); Carbon Dioxide 22 mEq/L (23-29); Chloride 110 mEq/L (98-107); Glucose 156 mg/dL (70-105); Magnesium 1.5 mg/dL (1.6-2.6); Osmolality,Calculated 294 (280-300); Phosphorous 2.7 mg/dL (2.7-4.5); Potassium 3.8 mEq/L (3.5-5.1); Sodium 140 mEq/L (136-145); eGFR For African Americans > 60 (> 60); eGFR For Non-African Americans 54 (> 60)
[2019-05-25] MEDS: Bisacodyl 10 MG RECTAL SUPPOSITORY RC SCH (17:01)
[2019-05-26] MEDS: Insulin LISPRO 300 UNITS/3 ML VIAL SQ SCH ×4 (00:33→18:36)
[2019-05-26] MEDS: Metoclopramide 10 MG/2 ML VIAL IVP SCH ×4 (00:39→16:33)
[2019-05-26] MEDS: Acetaminophen IV 1,000 MG/100 ML INFUS..BTL IVPB SCH ×4 (00:39→17:36)
[2019-05-26] MEDS: *HR* Heparin 5,000 UNIT/ML VIAL SQ SCH ×2 (05:24→17:35)
[2019-05-26 06:44] LABS: Basophils % 0.4 %; Eosinophils # 0.1 K/mcL (0.0-0.6); Hematocrit 26.4 % (35.3-44.9); Hemoglobin 8.4 g/dL (11.5-15.4); Immature Granulocytes % 0.6 % (0-4); Lymphocytes # 0.6 K/mcL (0.6-4.6); Lymphocytes % 11.4 %; Mean Corpuscular HGB Conc 31.8 g/dL (31.6-35.5); Mean Corpuscular Hemoglobin 33.2 pg (28.0-33.3); Mean Corpuscular Volume 104.3 fL (83.0-100.0); Mean Platelet Volume 8.5 fL (9.4-12.4); Monocytes # 0.3 K/mcL (0.0-1.3); Monocytes % 6.5 %; Platelet Count 305 K/mcL (140-400); Red Blood Count 2.53 M/mcL (3.82-4.97); Red Cell Distribution Width 13.9 % (11.5-14.5); Segmented Neutrophils % 79.1 %; White Blood Count 5.1 K/mcL (4.3-11.1)
[2019-05-26 07:02] LABS: BUN/Creatinine Ratio 13 (6-26); Blood Urea Nitrogen 11 mg/dL (8-23); Calcium 8.4 mg/dL (8.6-10.3); Carbon Dioxide 22 mEq/L (23-29); Chloride 108 mEq/L (98-107); Glucose 74 mg/dL (70-105); Magnesium 1.3 mg/dL (1.6-2.6); Osmolality,Calculated 292 (280-300); Phosphorous 2.7 mg/dL (2.7-4.5); Potassium 3.4 mEq/L (3.5-5.1); Sodium 142 mEq/L (136-145); eGFR For African Americans > 60 (> 60); eGFR For Non-African Americans > 60 (> 60)
[2019-05-26] MEDS: 0.9 % Sodium Chloride 1,000 ML IVC SCH ×2 (08:50→20:18)
[2019-05-26] MEDS: Bisacodyl 10 MG RECTAL SUPPOSITORY RC SCH (09:29)
[2019-05-26] MEDS: Pantoprazole 40 MG VIAL IVP SCH (09:56)
[2019-05-26] MEDS ORDERED: Methylnaltrexone 12 MG/0.6 ML SYRINGE SQ ONE (11:16)
--- NOTE | 2019-05-26 11:41 | General Surgery Progress Note ---
<Reyna Garza - Last Filed: 05/26/19 11:38> Date of Encounter: 05/26/19 Time of Encounter: 11:38 - Assessment and Plan (1) Postoperative ileus Current Visit: Yes Status: Acute KUB stable. She has had 1 dose of methynaltrexone 05/24 and was started on reglan. s/p dulcolax supposiotry last yesterday with BM last night, but pt states her abdomen feels more distented today and she has not passed flatus today (although she is noted to have had a small stool this am). Will obtain SBFT with Gastrograffin to r/o obstruction as moderately dilated small bowel remains. NG is currently clamped. Will methylnaltrexone if SBFT is with delayed transit Limited clears NG clamped. Return to suction if n/v. Continue IVF in the interim PRN antiemetics GI and DVT prophylaxis Further recommendations pending SBFT (2) Status post reversal of ileostomy Current Visit: Yes Status: Acute surgical site is unremarkable. She has a postop ileus (see above) (3) Chronic kidney disease (CKD) Current Visit: Yes Status: Chronic Creatine normal. Continue to monitor Qualifiers: Chronic kidney disease stage: stage 3 (moderate) Qualified Code(s): N18.3 - Chronic kidney disease, stage 3 (moderate) (4) Hypertension Current Visit: Yes Status: Chronic BP stable. PRN antihypertensives Qualifiers: Hypertension type: secondary to endocrine disorders Qualified Code(s): I15.2 - Hypertension secondary to endocrine disorders (5) T2DM (type 2 diabetes mellitus) Current Visit: Yes Status: Chronic Q6H accu check and SSI Qualifiers: Diabetes mellitus terminal supervisor insulin use: without residential use Diabetes mellitus complication status: with kidney complications Diabetes mellitus complication detail: with chronic kidney disease Chronic kidney disease stage: stage 3 (moderate) Qualified Code(s): E11.22 - Type 2 diabetes mellitus with diabetic chronic kidney disease; N18.3 - Chronic kidney disease, stage 3 (moderate) Subjective Patient reports: no new complaints, voiding w/o difficulty Narrative: Reports flatus and BM yesterday, but today feels distended and has no flatus. Had small BM mixed with urine this am. Objective Vital Signs - Last 8 Hours Temp Pulse Resp BP Pulse Ox 05/26/19 10:44 97.9 F 81 17 138/77 96 09/19/19 07:41 98 F 83 17 127/75 94 05/26/19 05:00 98.2 F 86 15 121/76 95 Intake and Output 05/25/19 05/26/19 05/26/19 23:59 07:59 15:59 Intake Total 1100 / 2400 200 / 200 Output Total 700 / 1450 250 / 1000 750 / 1000 Balance 400 / 950 -50 / -800 -750 / -800 Intake: IV Fluids 1100 / 2400 200 / 200 0.9 % Sodium Chloride 1,000 ML 1000 / 2000 @ 100 mls/hr IVC .Q10H [facility] Rx#: [id number] Ofirmev 1,000 mg/100 ml 1,000 100 / 400 200 / 200 mg In 100 ml @ 400 mls/hr IVPB Q6HR [facility] Rx#:[id number] Oral 0 / 0 0 / 0 Output: Urine 700 / 1300 Urine/Stool Mix 600 / 600 Gastric Drainage 250 / 400 150 / 400 Other: Meal NPO Stool Size Small Small Stool Consistency loose loose formed Stool Characteristics Mucoid Stool Color Brown Brown # Voids 1 Weight 87 kg Blood Glucose* 81 73 80 Patient Weight 05/26/19 23:59 Weight 87 kg - General physical appearance well nourished, no distress, no pain, obese - ENT normal nares (NG secured), atraumatic, normocephalic - Neck Neck exam: trachea midline - Respiratory normal expansion, normal respiratory effort - Cardiovascular Cardiovascular exam: Present: RRR - Abdomen Abdomen: Present: soft, non tender, distended. Absent: bowel sounds present Hernia: none - Incision Incision: Present: clean and dry, intact - Integumentary no rash - Neurologic normal sensation - Musculoskeletal normal posture - Psychiatric oriented to time, oriented to person, oriented to place, speech is normal - Labs 05/26/19 05:51 05/26/19 05:51 Diabetes panel 05/26/19 Range/Units 05:51 Sodium 142 (136-145) mEq/L Potassium 3.4 L (3.5-5.1) mEq/L Chloride 108 H (98-107) mEq/L Carbon Dioxide 22 L (23-29) mEq/L BUN 11 (8-23) mg/dL Creatinine 0.85 (0.60-1.20) mg/dL Glucose 74 (70-105) mg/dL Calcium 8.4 L (8.6-10.3) mg/dL Calcium panel 05/26/19 Range/Units 05:51 Calcium 8.4 L (8.6-10.3) mg/dL Phosphorus 2.7 (2.7-4.5) mg/dL Pituitary panel 05/26/19 Range/Units 05:51 Sodium 142 (136-145) mEq/L Potassium 3.4 L (3.5-5.1) mEq/L Chloride 108 H (98-107) mEq/L Carbon Dioxide 22 L (23-29) mEq/L BUN 11 (8-23) mg/dL Creatinine 0.85 (0.60-1.20) mg/dL Glucose 74 (70-105) mg/dL Calcium 8.4 L (8.6-10.3) mg/dL Adrenal panel 05/26/19 Range/Units 05:51 Sodium 142 (136-145) mEq/L Potassium 3.4 L (3.5-5.1) mEq/L Chloride 108 H (98-107) mEq/L Carbon Dioxide 22 L (23-29) mEq/L BUN 11 (8-23) mg/dL Creatinine 0.85 (0.60-1.20) mg/dL Glucose 74 (70-105) mg/dL Calcium 8.4 L (8.6-10.3) mg/dL Consult Discharge Plan - Plan Referrals: Sun June MD [Primary Care Provider] - <Rosario Santana - Last Filed: 05/26/19 20:38> Date of Encounter: 05/26/19 Time of Encounter: 12:30 - Assessment and Plan (1) Postoperative ileus Current Visit: Yes Status: Acute patient with only faint and infrequent bowel sounds, no abdominal pain continue ngt decompression continue reglan npo ok ice chips ivf hydration serial abdominal exams prn pain control gi/dvt prophylaxis OOB to chair ambulate in keyes/ok to clamp ngt for ambulation may need to start tpn tomorrow (2) Status post reversal of ileostomy Current Visit: Yes Status: Acute (3) Chronic kidney disease (CKD) Current Visit: Yes Status: Chronic Qualifiers: Chronic kidney disease stage: stage 3 (moderate) Qualified Code(s): N18.3 - Chronic kidney disease, stage 3 (moderate) (4) Hypertension Current Visit: Yes Status: Chronic Qualifiers: Hypertension type: secondary to endocrine disorders Qualified Code(s): I15.2 - Hypertension secondary to endocrine disorders (5) T2DM (type 2 diabetes mellitus) Current Visit: Yes Status: Chronic Qualifiers: Diabetes mellitus residential insulin use: without residential use Diabetes mellitus complication status: with kidney complications Diabetes mellitus complication detail: with chronic kidney disease Chronic kidney disease stage: stage 3 (moderate) Qualified Code(s): E11.22 - Type 2 diabetes mellitus with diabetic chronic kidney disease; N18.3 - Chronic kidney disease, stage 3 (moderate) Subjective Patient reports: no new complaints, feels better, voiding w/o difficulty, flatus (small amt today), no bowel movement, nausea Objective Vital Signs - Last 8 Hours Temp Pulse Resp BP Pulse Ox 05/26/19 19:55 98.8 F 93 16 131/70 96 05/26/19 16:09 98.1 F 100 17 143/81 97 Intake and Output 05/26/19 05/26/19 05/26/19 07:59 15:59 23:59 Intake Total 200 / 2900 1240 / 2900 1460 / 2900 Output Total 250 / 1550 1300 / 1550 0 / 1550 Balance -50 / 1350 -60 / 1350 1460 / 1350 Intake: IV Fluids 200 / 2300 1000 / 2300 1100 / 2300 0.9 % Sodium Chloride 1,000 ML 1000 / 2000 1000 / 2000 @ 100 mls/hr IVC .Q10H [facility] Rx#: [id number] Ofirmev 1,000 mg/100 ml 1,000 200 / 300 100 / 300 mg In 100 ml @ 400 mls/hr IVPB Q6HR [facility] Rx#:[id number] Oral 0 / 600 240 / 600 360 / 600 Output: Urine 0 / 0 Urine/Stool Mix 1100 / 1100 Gastric Drainage 250 / 450 200 / 450 Other: Meal Breakfast Dinner Stool Size Small Stool Consistency loose Stool Characteristics Mucoid Stool Color Brown Weight 87 kg Blood Glucose* 73 80 86 Patient Weight 05/26/19 23:59 Weight 87 kg - General physical appearance well developed, well nourished, no pain - Eyes PERRL - ENT normocephalic - Neck Neck exam: trachea midline - Respiratory normal expansion, clear to auscultation - Cardiovascular Cardiovascular exam: Present: RRR - Abdomen Abdomen: Present: bowel sounds present (faint/hypoactive), soft, non tender, distended. Absent: guarding, rebound - Incision Incision: Present: clean and dry, intact - Integumentary no rash - Neurologic CN 2-12 grossly intact, normal sensation - Psychiatric oriented to time, oriented to person, speech is normal - Labs 05/26/19 05:51 05/26/19 05:51 Diabetes panel 05/26/19 Range/Units 05:51 Sodium 142 (136-145) mEq/L Potassium 3.4 L (3.5-5.1) mEq/L Chloride 108 H (98-107) mEq/L Carbon Dioxide 22 L (23-29) mEq/L BUN 11 (8-23) mg/dL Creatinine 0.85 (0.60-1.20) mg/dL Glucose 74 (70-105) mg/dL Calcium 8.4 L (8.6-10.3) mg/dL Calcium panel 05/26/19 Range/Units 05:51 Calcium 8.4 L (8.6-10.3) mg/dL Phosphorus 2.7 (2.7-4.5) mg/dL Pituitary panel 05/26/19 Range/Units 05:51 Sodium 142 (136-145) mEq/L Potassium 3.4 L (3.5-5.1) mEq/L Chloride 108 H (98-107) mEq/L Carbon Dioxide 22 L (23-29) mEq/L BUN 11 (8-23) mg/dL Creatinine 0.85 (0.60-1.20) mg/dL Glucose 74 (70-105) mg/dL Calcium 8.4 L (8.6-10.3) mg/dL Adrenal panel 05/26/19 Range/Units 05:51 Sodium 142 (136-145) mEq/L Potassium 3.4 L (3.5-5.1) mEq/L Chloride 108 H (98-107) mEq/L Carbon Dioxide 22 L (23-29) mEq/L BUN 11 (8-23) mg/dL Creatinine 0.85 (0.60-1.20) mg/dL Glucose 74 (70-105) mg/dL Calcium 8.4 L (8.6-10.3) mg/dL - Attending Attestation I have personally performed a face to face evaluation on this patient. I have reviewed and agree with the care plan. History and Exam by me shows:
[2019-05-26] MEDS: Ondansetron 4 MG/2 ML VIAL IVP PRN (13:14)
[2019-05-26] MEDS ORDERED: Bisacodyl 10 MG RECTAL SUPPOSITORY RC SCH ×2 (14:00→21:00)
[2019-05-27] MEDS: Metoclopramide 10 MG/2 ML VIAL IVP SCH ×3 (00:14→17:30)
[2019-05-27] MEDS: Insulin LISPRO 300 UNITS/3 ML VIAL SQ SCH ×4 (00:15→18:08)
[2019-05-27 04:28] LABS: Basophils % 0.3 %; Eosinophils # 0.1 K/mcL (0.0-0.6); Eosinophils % 1.3 %; Hematocrit 26.9 % (35.3-44.9); Hemoglobin 8.5 g/dL (11.5-15.4); Immature Granulocytes % 0.3 % (0-4); Lymphocytes # 0.6 K/mcL (0.6-4.6); Lymphocytes % 8.9 %; Mean Corpuscular HGB Conc 31.6 g/dL (31.6-35.5); Mean Corpuscular Hemoglobin 33.1 pg (28.0-33.3); Mean Corpuscular Volume 104.7 fL (83.0-100.0); Monocytes # 0.3 K/mcL (0.0-1.3); Monocytes % 5.3 %; Neutrophils # 5.4 K/mcL (1.6-8.9); Platelet Count 311 K/mcL (140-400); Red Blood Count 2.57 M/mcL (3.82-4.97); Red Cell Distribution Width 14.1 % (11.5-14.5); Segmented Neutrophils % 83.9 %; White Blood Count 6.4 K/mcL (4.3-11.1)
[2019-05-27 04:47] LABS: BUN/Creatinine Ratio 11 (6-26); Blood Urea Nitrogen 9 mg/dL (8-23); Calcium 8.4 mg/dL (8.6-10.3); Carbon Dioxide 19 mEq/L (23-29); Chloride 112 mEq/L (98-107); Glucose 98 mg/dL (70-105); Magnesium 1.3 mg/dL (1.6-2.6); Osmolality,Calculated 293 (280-300); Phosphorous 2.1 mg/dL (2.7-4.5); Potassium 3.2 mEq/L (3.5-5.1); Sodium 142 mEq/L (136-145); eGFR For African Americans > 60 (> 60); eGFR For Non-African Americans > 60 (> 60)
[2019-05-27] MEDS: 0.9 % Sodium Chloride 1,000 ML IVC SCH ×2 (06:04→18:06)
[2019-05-27] MEDS: *HR* Heparin 5,000 UNIT/ML VIAL SQ SCH ×2 (06:04→17:30)
--- NOTE | 2019-05-27 07:59 | General Surgery Progress Note ---
<Reyna Garza - Last Filed: 05/27/19 09:46> Date of Encounter: 05/27/19 Time of Encounter: 07:56 - Assessment and Plan (1) Postoperative ileus Current Visit: Yes Status: Acute AAS with continued small bowel dilatation. Although interpretation suggests bowel obstruction, her exam is nt consistent. She has no abdominal discomfort and no bowel sounds. Collaborated with attending surgeon who agrees this is more consistent with severe postoperative ileus. NG was to gravity last night. She >1L output in hammer bag. Reports multiple episodes of diarrhea; however, I suspect this is all from below given use of dulcolax suppository and lack of bowel sounds this am. Dr. Santana ordered soap suds enema this am, but patient refused. Return NG to WS NPO except ice chips will start TPN Methylnaltrexone x1 Continue reglan 20 mg Q8H GI and DVT prophylaxis Amb TID OOB to chair TID PT/OT IS (2) Status post reversal of ileostomy Current Visit: Yes Status: Acute surgical site is unremarkable. She has a postop ileus (see above) (3) Chronic kidney disease (CKD) Current Visit: Yes Status: Chronic Creatine normal. Continue to monitor Qualifiers: Chronic kidney disease stage: stage 3 (moderate) Qualified Code(s): N18.3 - Chronic kidney disease, stage 3 (moderate) (4) Hypertension Current Visit: Yes Status: Chronic BP stable. PRN antihypertensives Qualifiers: Hypertension type: secondary to endocrine disorders Qualified Code(s): I15.2 - Hypertension secondary to endocrine disorders (5) T2DM (type 2 diabetes mellitus) Current Visit: Yes Status: Chronic Q6H accu check and SSI Qualifiers: Diabetes mellitus detention insulin use: without detention use Diabetes mellitus complication status: with kidney complications Diabetes mellitus complication detail: with chronic kidney disease Chronic kidney disease stage: stage 3 (moderate) Qualified Code(s): E11.22 - Type 2 diabetes mellitus with diabetic chronic kidney disease; N18.3 - Chronic kidney disease, stage 3 (moderate) (6) Anemia in chronic kidney disease (CKD) Current Visit: Yes Status: Chronic hgb stable with dilution. No evidence of acute bleed. No indication for transfusion Qualifiers: Chronic kidney disease stage: stage 3 (moderate) Qualified Code(s): N18.3 - Chronic kidney disease, stage 3 (moderate); D63.1 - Anemia in chronic kidney disease (7) Hypokalemia Current Visit: Yes Status: Acute Replete as indicated (8) Protein calorie malnutrition Current Visit: Yes Status: Acute Start TPN for prolonged NPO Check albumin and prealbumin Qualifiers: Protein-calorie malnutrition severity: unspecified severity Qualified Code(s): E46 - Unspecified protein-calorie malnutrition Subjective Narrative: Mayelin states she feels a little better than yesterday. She reports multiple episodes of diarrhea overnight (of note she did get a Dulcolax suppository at bedtime last night). She denies nausea at this time. Objective Vital Signs - Last 8 Hours Temp Pulse Resp BP Pulse Ox 05/27/19 06:48 98.1 F 88 15 123/79 95 Intake and Output 05/26/19 05/26/19 05/27/19 15:59 23:59 07:59 Intake Total 1240 / 2900 1460 / 2900 1000 / 1000 Output Total 1300 / 1550 0 / 1550 Balance -60 / 1350 1460 / 1350 1000 / 1000 Intake: IV Fluids 1000 / 2300 1100 / 2300 1000 / 1000 0.9 % Sodium Chloride 1,000 ML 1000 / 2000 1000 / 2000 1000 / 1000 @ 100 mls/hr IVC .Q10H [facility] Rx#: [id number] Ofirmev 1,000 mg/100 ml 1,000 100 / 300 mg In 100 ml @ 400 mls/hr IVPB Q6HR [facility] Rx#:[id number] Oral 240 / 600 360 / 600 Output: Urine 0 / 0 Urine/Stool Mix 1100 / 1100 Gastric Drainage 200 / 450 Other: Meal Breakfast Dinner Stool Size Small Small Small Stool Consistency loose loose loose Stool Characteristics Mucoid Stool Color Brown Brown Brown Green # Bowel Movements 1 # Bowel Movement Diapers 1 Blood Glucose* 80 86 102 - General physical appearance no distress, no pain, other (Sleeping upon my arrival.) - ENT normal nares (NG secured in the right nares), atraumatic, normocephalic - Respiratory normal expansion, normal respiratory effort - Cardiovascular Cardiovascular exam: Present: RRR, distant heart sounds - Abdomen Abdomen: Present: soft, tympanic, distended. Absent: bowel sounds present, non tender Hernia: none - Incision Incision: Present: clean and dry, intact - Integumentary no rash - Neurologic normal sensation - Musculoskeletal normal posture - Psychiatric oriented to time, oriented to person, oriented to place, speech is normal - Labs 05/27/19 04:05 05/27/19 04:05 Diabetes panel 05/27/19 Range/Units 04:05 Sodium 142 (136-145) mEq/L Potassium 3.2 L (3.5-5.1) mEq/L Chloride 112 H (98-107) mEq/L Carbon Dioxide 19 L (23-29) mEq/L BUN 9 (8-23) mg/dL Creatinine 0.81 (0.60-1.20) mg/dL Glucose 98 (70-105) mg/dL Calcium 8.4 L (8.6-10.3) mg/dL Calcium panel 05/27/19 Range/Units 04:05 Calcium 8.4 L (8.6-10.3) mg/dL Phosphorus 2.1 L (2.7-4.5) mg/dL Pituitary panel 05/27/19 Range/Units 04:05 Sodium 142 (136-145) mEq/L Potassium 3.2 L (3.5-5.1) mEq/L Chloride 112 H (98-107) mEq/L Carbon Dioxide 19 L (23-29) mEq/L BUN 9 (8-23) mg/dL Creatinine 0.81 (0.60-1.20) mg/dL Glucose 98 (70-105) mg/dL Calcium 8.4 L (8.6-10.3) mg/dL Adrenal panel 05/27/19 Range/Units 04:05 Sodium 142 (136-145) mEq/L Potassium 3.2 L (3.5-5.1) mEq/L Chloride 112 H (98-107) mEq/L Carbon Dioxide 19 L (23-29) mEq/L BUN 9 (8-23) mg/dL Creatinine 0.81 (0.60-1.20) mg/dL Glucose 98 (70-105) mg/dL Calcium 8.4 L (8.6-10.3) mg/dL Consult Discharge Plan - Plan Referrals: Sun June MD [Primary Care Provider] - <Rosario Santana - Last Filed: 05/27/19 11:20> Date of Encounter: 05/27/19 - Assessment and Plan (1) Postoperative ileus Current Visit: Yes Status: Acute patient with no abdominal pain, no nausea, distended but passing some flatus and bms overnight faint to almost no bowel sounds continue npo ok ice chips NGT to LIWS oob to chair BID/ambulate hallway serial abdominal exams gi/dvt prophyl prn pain control await return of bowel function Urine culture negative replaced Mg and Kphos today TPN to start today continue reglan (2) Status post reversal of ileostomy Current Visit: Yes Status: Acute (3) Chronic kidney disease (CKD) Current Visit: Yes Status: Chronic Qualifiers: Chronic kidney disease stage: stage 3 (moderate) Qualified Code(s): N18.3 - Chronic kidney disease, stage 3 (moderate) (4) Hypertension Current Visit: Yes Status: Chronic Qualifiers: Hypertension type: secondary to endocrine disorders Qualified Code(s): I15.2 - Hypertension secondary to endocrine disorders (5) T2DM (type 2 diabetes mellitus) Current Visit: Yes Status: Chronic Qualifiers: Diabetes mellitus supervisor long goods insulin use: without supervisor long goods use Diabetes mellitus complication status: with kidney complications Diabetes mellitus complication detail: with chronic kidney disease Chronic kidney disease stage: stage 3 (moderate) Qualified Code(s): E11.22 - Type 2 diabetes mellitus with diabetic chronic kidney disease; N18.3 - Chronic kidney disease, stage 3 (moderate) Subjective Patient reports: no new complaints, other (denies abdominal pain or nausea, states passing flatus and had bms yesterday) Objective Vital Signs - Last 8 Hours Temp Pulse Resp BP Pulse Ox 05/27/19 11:03 98.0 F 84 14 135/78 98 05/27/19 09:38 95 05/27/19 06:48 98.1 F 88 15 123/79 95 Intake and Output 05/26/19 05/27/19 05/27/19 23:59 07:59 15:59 Intake Total 1460 / 2900 1000 / 1000 Output Total 0 / 1550 500 / 500 Balance 1460 / 1350 1000 / 500 -500 / 500 Intake: IV Fluids 1100 / 2300 1000 / 1000 0.9 % Sodium Chloride 1,000 ML 1000 / 2000 1000 / 1000 @ 100 mls/hr IVC .Q10H [facility] Rx#: [id number] Ofirmev 1,000 mg/100 ml 1,000 100 / 300 mg In 100 ml @ 400 mls/hr IVPB Q6HR [facility] Rx#:[id number] Oral 360 / 600 Output: Urine 0 / 0 500 / 500 Other: Meal Dinner Stool Size Small Small Smear Stool Consistency loose loose liquid Stool Color Brown Brown Brown Green Pale # Bowel Movements 1 # Bowel Movement Diapers 1 Blood Glucose* 86 102 - General physical appearance no distress, no pain - Eyes normal ocular movement - ENT normal nares - Neck Neck exam: trachea midline - Respiratory normal expansion, clear to auscultation - Cardiovascular Cardiovascular exam: Present: RRR - Abdomen Abdomen: Present: soft, tympanic, distended. Absent: bowel sounds present (faint, very infrequent), tender, rebound, rigid - Incision Incision: Present: clean and dry, intact - Integumentary no rash - Neurologic normal sensation - Musculoskeletal normal posture - Psychiatric oriented to time, oriented to place, memory intact - Labs 05/27/19 04:05 05/27/19 04:05 Diabetes panel 05/27/19 Range/Units 04:05 Sodium 142 (136-145) mEq/L Potassium 3.2 L (3.5-5.1) mEq/L Chloride 112 H (98-107) mEq/L Carbon Dioxide 19 L (23-29) mEq/L BUN 9 (8-23) mg/dL Creatinine 0.81 (0.60-1.20) mg/dL Glucose 98 (70-105) mg/dL Calcium 8.4 L (8.6-10.3) mg/dL Calcium panel 05/27/19 Range/Units 04:05 Calcium 8.4 L (8.6-10.3) mg/dL Phosphorus 2.1 L (2.7-4.5) mg/dL Pituitary panel 05/27/19 Range/Units 04:05 Sodium 142 (136-145) mEq/L Potassium 3.2 L (3.5-5.1) mEq/L Chloride 112 H (98-107) mEq/L Carbon Dioxide 19 L (23-29) mEq/L BUN 9 (8-23) mg/dL Creatinine 0.81 (0.60-1.20) mg/dL Glucose 98 (70-105) mg/dL Calcium 8.4 L (8.6-10.3) mg/dL Adrenal panel 05/27/19 Range/Units 04:05 Sodium 142 (136-145) mEq/L Potassium 3.2 L (3.5-5.1) mEq/L Chloride 112 H (98-107) mEq/L Carbon Dioxide 19 L (23-29) mEq/L BUN 9 (8-23) mg/dL Creatinine 0.81 (0.60-1.20) mg/dL Glucose 98 (70-105) mg/dL Calcium 8.4 L (8.6-10.3) mg/dL - Attending Attestation I have personally performed a face to face evaluation on this patient. I have reviewed and agree with the care plan. History and Exam by me shows:
[2019-05-27] MEDS: Pantoprazole 40 MG VIAL IVP SCH (08:17)
[2019-05-27] MEDS ORDERED: Potassium Phosphate 44 MEQ in 0.9 % Sodium Chloride 250 ML IVPB ONE (08:30)
[2019-05-27] MEDS ORDERED: Bisacodyl 10 MG RECTAL SUPPOSITORY RC ONE (09:00)
[2019-05-27] MEDS ORDERED: Methylnaltrexone 12 MG/0.6 ML SYRINGE SQ ONE (09:31)
[2019-05-27] MEDS ORDERED: D10% in Water 500 ML IVC PRN (11:43)
[2019-05-27] MEDS: Acetaminophen IV 1,000 MG/100 ML INFUS..BTL IVPB PRN (13:04)
--- NOTE | 2019-05-27 15:47 | Event Note ---
Date of Encounter: 05/27/19 Time of Encounter: 15:36 Rounded on patient. She reports multiple bowel movements (s/p soap suds enema and dulcolax suppository). she denies flatus. She reports distention. NG was with debris. This MAINTENANCE EQUIPMENT OPERATOR pulled NG back 5 cm (noted tip postpyloric) and then flushed NG with 40 ml water. Pt almost immediately started gagging and reported nausea. Large amount of air returned per suction. 40 ml of water per suction. Bowel sound remain absent. Continue bowel rest. Ice chips for comfort. Repeat KUB. Consider neostigmine.
[2019-05-27] MEDS ORDERED: Clinimix E 5%-15% SOLUTION 2,000 ML with MVI, adult with vitamin K 10 ML IVC SCH (17:00)
[2019-05-27] MEDS: Ondansetron 4 MG/2 ML VIAL IVP PRN (18:10)
[2019-05-28] MEDS: Metoclopramide 10 MG/2 ML VIAL IVP SCH ×3 (00:22→16:01)
[2019-05-28] MEDS: Insulin LISPRO 300 UNITS/3 ML VIAL SQ SCH ×6 (00:23→20:43)
[2019-05-28] MEDS: *HR* Heparin 5,000 UNIT/ML VIAL SQ SCH ×2 (05:06→17:11)
[2019-05-28 05:46] LABS: BUN/Creatinine Ratio 8 (6-26); Blood Urea Nitrogen 6 mg/dL (8-23); Calcium 8.3 mg/dL (8.6-10.3); Carbon Dioxide 21 mEq/L (23-29); Chloride 109 mEq/L (98-107); Glucose 218 mg/dL (70-105); Magnesium 1.4 mg/dL (1.6-2.6); Osmolality,Calculated 298 (280-300); Phosphorous 2.6 mg/dL (2.7-4.5); Potassium 3.5 mEq/L (3.5-5.1); Sodium 142 mEq/L (136-145); Triglycerides 156 mg/dL (< 150); eGFR For African Americans > 60 (> 60); eGFR For Non-African Americans > 60 (> 60)
[2019-05-28] MEDS: Ondansetron 4 MG/2 ML VIAL IVP PRN (06:13)
--- NOTE | 2019-05-28 07:51 | General Surgery Progress Note ---
Date of Encounter: 05/28/19 Time of Encounter: 07:50 - Assessment and Plan (1) Postoperative ileus Current Visit: Yes Status: Acute I explained to the patient and we will need to continue with NG tube placement for the time being. Will have her up and out of bed to chair and consider PT consultation. She is on IV nutrition and we will continue to allow ice chips. Await return of bowel function. Subjective Patient reports: other (The patient denies any abdominal pain. She states she has been still having nausea despite the NG tube being in good position. She says she had flatus this morning and did have bowel movements yesterday.) Objective Vital Signs - Last 8 Hours Temp Pulse Resp BP Pulse Ox 05/28/19 07:32 98.5 F 90 17 139/65 92 05/28/19 04:37 99.0 F 102 15 130/73 91 Intake and Output 05/27/19 05/27/19 05/28/19 15:59 23:59 07:59 Intake Total 100 / 1100 Output Total 800 / 1400 600 / 1400 1350 / 1350 Balance -700 / -300 -600 / -300 -1350 / -1350 Intake: IV Fluids 100 / 1100 Ofirmev 1,000 mg/100 ml 1,000 100 / 100 mg In 100 ml @ 400 mls/hr IVPB Q6HR [facility] Rx#:[id number] Oral 0 / 0 Output: Urine 500 / 1100 600 / 1100 700 / 700 Gastric Drainage 300 / 300 650 / 650 Right Nare 300 / 300 Other: Meal Dinner Percent of Meal Consumed 0% Stool Size Smear Stool Consistency liquid Stool Color Brown Pale Blood Glucose* 191 213 - General physical appearance well nourished, no distress - Abdomen Abdomen: Present: bowel sounds present (scant bowel sounds), soft, non tender - Labs 05/27/19 04:05 05/28/19 05:10 Diabetes panel 05/27/19 05/28/19 Range/Units 13:45 05:10 Sodium 142 (136-145) mEq/L Potassium 3.5 (3.5-5.1) mEq/L Chloride 109 H (98-107) mEq/L Carbon Dioxide 21 L (23-29) mEq/L BUN 6 L (8-23) mg/dL Creatinine 0.75 (0.60-1.20) mg/dL Glucose 218 H (70-105) mg/dL Calcium 8.3 L (8.6-10.3) mg/dL Albumin 3.0 L (3.5-5.7) g/dL Triglycerides 156 H (< 150) mg/dL Calcium panel 05/27/19 05/28/19 Range/Units 13:45 05:10 Calcium 8.3 L (8.6-10.3) mg/dL Phosphorus 2.6 L (2.7-4.5) mg/dL Albumin 3.0 L (3.5-5.7) g/dL Pituitary panel 05/28/19 Range/Units 05:10 Sodium 142 (136-145) mEq/L Potassium 3.5 (3.5-5.1) mEq/L Chloride 109 H (98-107) mEq/L Carbon Dioxide 21 L (23-29) mEq/L BUN 6 L (8-23) mg/dL Creatinine 0.75 (0.60-1.20) mg/dL Glucose 218 H (70-105) mg/dL Calcium 8.3 L (8.6-10.3) mg/dL Adrenal panel 05/27/19 05/28/19 Range/Units 13:45 05:10 Sodium 142 (136-145) mEq/L Potassium 3.5 (3.5-5.1) mEq/L Chloride 109 H (98-107) mEq/L Carbon Dioxide 21 L (23-29) mEq/L BUN 6 L (8-23) mg/dL Creatinine 0.75 (0.60-1.20) mg/dL Glucose 218 H (70-105) mg/dL Calcium 8.3 L (8.6-10.3) mg/dL Albumin 3.0 L (3.5-5.7) g/dL Consult Discharge Plan - Plan Referrals: Sun June MD [Primary Care Provider] -
[2019-05-28] MEDS: 0.9 % Sodium Chloride 1,000 ML IVC SCH ×2 (08:25→16:00)
[2019-05-28] MEDS: Pantoprazole 40 MG VIAL IVP SCH (08:25)
[2019-05-28] MEDS: Ondansetron 4 MG/2 ML VIAL IVP SCH ×4 (08:26→20:43)
[2019-05-28] MEDS ORDERED: *HR* Promethazine 25 MG/ML VIAL IVP PRN (09:03)
[2019-05-28] MEDS ORDERED: Clinimix E 5%-15% SOLUTION 2,000 ML with MVI, adult with vitamin K 10 ML IVC SCH (17:00)
[2019-05-28] MEDS: Acetaminophen IV 1,000 MG/100 ML INFUS..BTL IVPB PRN (20:44)
[2019-05-29] MEDS: Metoclopramide 10 MG/2 ML VIAL IVP SCH ×3 (00:30→17:25)
[2019-05-29] MEDS: Ondansetron 4 MG/2 ML VIAL IVP SCH ×6 (00:30→21:01)
[2019-05-29] MEDS: Insulin LISPRO 300 UNITS/3 ML VIAL SQ SCH ×6 (00:30→21:01)
[2019-05-29] MEDS: *HR* Heparin 5,000 UNIT/ML VIAL SQ SCH ×2 (05:05→17:25)
[2019-05-29 05:08] LABS: BUN/Creatinine Ratio 11 (6-26); Blood Urea Nitrogen 9 mg/dL (8-23); Calcium 8.3 mg/dL (8.6-10.3); Carbon Dioxide 26 mEq/L (23-29); Chloride 109 mEq/L (98-107); Glucose 166 mg/dL (70-105); Magnesium 1.6 mg/dL (1.6-2.6); Osmolality,Calculated 298 (280-300); Phosphorous 3.1 mg/dL (2.7-4.5); Potassium 3.2 mEq/L (3.5-5.1); Sodium 143 mEq/L (136-145); eGFR For African Americans > 60 (> 60); eGFR For Non-African Americans > 60 (> 60)
[2019-05-29] MEDS: 0.9 % Sodium Chloride 1,000 ML IVC SCH ×3 (07:35→21:00)
[2019-05-29] MEDS: Pantoprazole 40 MG VIAL IVP SCH (07:53)
--- NOTE | 2019-05-29 13:08 | General Surgery Progress Note ---
Date of Encounter: 05/29/19 Time of Encounter: 13:06 - Assessment and Plan (1) Postoperative ileus Current Visit: Yes Status: Acute Continue to wait for return of bowel function. The abdomen does appear somewhat slightly less distended. Continue with NG tube decompression. Continue with IV nutrition as well. Dr. Santana to return tomorrow. Subjective Patient reports: other (The patient is sitting up in a chair resting. She states that she had a bowel movement earlier this morning. She admits to nausea but no vomiting.) Objective Vital Signs - Last 8 Hours Temp Pulse Resp BP Pulse Ox 05/29/19 11:07 98.8 F 89 16 152/74 95 05/29/19 07:42 99.3 F 84 18 135/81 94 Intake and Output 05/28/19 05/29/19 05/29/19 23:59 07:59 15:59 Intake Total 1603.3 / 1965.0 400 / 400 0 / 400 Output Total 725 / 2625 500 / 800 300 / 800 Balance 878.3 / -660.0 -100 / -400 -300 / -400 Intake: IV Fluids 1603.3 / 1965.0 400 / 400 0.9 % Sodium Chloride 1,000 ML 393.3 / 455.0 150 / 150 @ 100 mls/hr IVC .Q10H [facility] Rx#: [id number] Clinimix E 5%-15% SOLUTION 2, 1110 / 1110 000 ML @ 50 mls/hr IVC .Q24H [facility] with M.v.i. Adult 10 ml Rx# :[id number] Ofirmev 1,000 mg/100 ml 1,000 100 / 100 mg In 100 ml @ 400 mls/hr IVPB Q6HR PRN Rx#:[id number] Intralipid 20% 250 ML @ 21 mls/ 250 / 250 hr IVPB DAILY@1700 [facility] Rx#: [id number] Oral 0 / 0 0 / 0 Output: Urine 600 / 1700 500 / 500 0 / 500 Gastric Drainage 125 / 925 300 / 300 Right Nare 125 / 125 Other: Stool Size Small Stool Consistency soft formed Stool Characteristics Normal for Patient Stool Color Green # Bowel Movements 1 Blood Glucose* 170 192 181 - General physical appearance well nourished, no distress - Abdomen Abdomen: Present: bowel sounds present (scant), soft, non tender - Labs 05/27/19 04:05 05/29/19 04:35 Diabetes panel 05/29/19 Range/Units 04:35 Sodium 143 (136-145) mEq/L Potassium 3.2 L (3.5-5.1) mEq/L Chloride 109 H (98-107) mEq/L Carbon Dioxide 26 (23-29) mEq/L BUN 9 (8-23) mg/dL Creatinine 0.79 (0.60-1.20) mg/dL Glucose 166 H (70-105) mg/dL Calcium 8.3 L (8.6-10.3) mg/dL Calcium panel 05/29/19 Range/Units 04:35 Calcium 8.3 L (8.6-10.3) mg/dL Phosphorus 3.1 (2.7-4.5) mg/dL Pituitary panel 05/29/19 Range/Units 04:35 Sodium 143 (136-145) mEq/L Potassium 3.2 L (3.5-5.1) mEq/L Chloride 109 H (98-107) mEq/L Carbon Dioxide 26 (23-29) mEq/L BUN 9 (8-23) mg/dL Creatinine 0.79 (0.60-1.20) mg/dL Glucose 166 H (70-105) mg/dL Calcium 8.3 L (8.6-10.3) mg/dL Adrenal panel 05/29/19 Range/Units 04:35 Sodium 143 (136-145) mEq/L Potassium 3.2 L (3.5-5.1) mEq/L Chloride 109 H (98-107) mEq/L Carbon Dioxide 26 (23-29) mEq/L BUN 9 (8-23) mg/dL Creatinine 0.79 (0.60-1.20) mg/dL Glucose 166 H (70-105) mg/dL Calcium 8.3 L (8.6-10.3) mg/dL Consult Discharge Plan - Plan Referrals: Sun June MD [Primary Care Provider] -
[2019-05-29] MEDS: Acetaminophen IV 1,000 MG/100 ML INFUS..BTL IVPB PRN (15:21)
[2019-05-29] MEDS ORDERED: Clinimix E 5%-15% SOLUTION 2,000 ML with MVI, adult with vitamin K 10 ML IVC SCH (17:00)
[2019-05-30] MEDS: Insulin LISPRO 300 UNITS/3 ML VIAL SQ SCH ×6 (00:11→20:18)
[2019-05-30] MEDS: Ondansetron 4 MG/2 ML VIAL IVP SCH ×6 (00:12→20:19)
[2019-05-30] MEDS: Metoclopramide 10 MG/2 ML VIAL IVP SCH ×2 (00:12→09:54)
[2019-05-30 05:02] LABS: BUN/Creatinine Ratio 15 (6-26); Blood Urea Nitrogen 12 mg/dL (8-23); Calcium 7.9 mg/dL (8.6-10.3); Carbon Dioxide 26 mEq/L (23-29); Chloride 107 mEq/L (98-107); Glucose 216 mg/dL (70-105); Magnesium 1.5 mg/dL (1.6-2.6); Osmolality,Calculated 298 (280-300); Potassium 3.2 mEq/L (3.5-5.1); Sodium 141 mEq/L (136-145); eGFR For African Americans > 60 (> 60); eGFR For Non-African Americans > 60 (> 60)
[2019-05-30] MEDS: *HR* Heparin 5,000 UNIT/ML VIAL SQ SCH ×2 (05:11→17:28)
[2019-05-30] MEDS ORDERED: Potassium Chloride 40 MEQ, Lidocaine 1% 2 ML in 0.9 % Sodium Chloride 500 ML IVPB ONE (08:35)
[2019-05-30] MEDS: Pantoprazole 40 MG VIAL IVP SCH (09:54)
[2019-05-30] MEDS: 0.9 % Sodium Chloride 1,000 ML IVC SCH ×2 (11:35→11:36)
--- NOTE | 2019-05-30 14:30 | General Surgery Progress Note ---
<Reyna Garza - Last Filed: 05/30/19 14:28> Date of Encounter: 05/30/19 Time of Encounter: 14:28 - Assessment and Plan (1) Postoperative ileus Current Visit: Yes Status: Acute SBFT w/GG today notes transition to colon and patient subsequently having BM. No obstruction noted. CLD w/ Ensure Clear TID Continue TPN today GI and DVT prophylaxis Amb TID OOB to chair TID PT/OT; C for therapy at d/c IS (2) Status post reversal of ileostomy Current Visit: Yes Status: Acute surgical site is unremarkable. She has a postop ileus (see above) (3) Hypertension Current Visit: Yes Status: Chronic BP stable. Continue home meds Qualifiers: Hypertension type: secondary to endocrine disorders Qualified Code(s): I15.2 - Hypertension secondary to endocrine disorders (4) Hypokalemia Current Visit: Yes Status: Acute Replete as indicated 40 MEQ today (5) Chronic kidney disease (CKD) Current Visit: Yes Status: Chronic Creatinine normal. Continue to monitor Qualifiers: Chronic kidney disease stage: stage 3 (moderate) Qualified Code(s): N18.3 - Chronic kidney disease, stage 3 (moderate) (6) T2DM (type 2 diabetes mellitus) Current Visit: Yes Status: Chronic Q6H accu check and SSI Qualifiers: Diabetes mellitus terminal supervisor insulin use: without terminal supervisor use Diabetes mellitus complication status: with kidney complications Diabetes mellitus complication detail: with chronic kidney disease Chronic kidney disease stage: stage 3 (moderate) Qualified Code(s): E11.22 - Type 2 diabetes mellitus with diabetic chronic kidney disease; N18.3 - Chronic kidney disease, stage 3 (moderate) (7) Anemia in chronic kidney disease (CKD) Current Visit: Yes Status: Resolved hgb stable with dilution. No evidence of acute bleed. No indication for transfusion Qualifiers: Chronic kidney disease stage: stage 3 (moderate) Qualified Code(s): N18.3 - Chronic kidney disease, stage 3 (moderate); D63.1 - Anemia in chronic kidney disease (8) Protein calorie malnutrition Current Visit: Yes Status: Acute Continue TPN today CLD with protein supplement Qualifiers: Protein-calorie malnutrition severity: unspecified severity Qualified Code(s): E46 - Unspecified protein-calorie malnutrition (9) Hypomagnesemia Current Visit: Yes Status: Acute Replete as indicated Subjective Patient reports: no new complaints, feels better, pain is less, voiding w/o difficulty, flatus, bowel movement, afebrile Objective Vital Signs - Last 8 Hours Temp Pulse Resp BP Pulse Ox 05/30/19 13:55 97.6 F 82 16 153/82 94 05/30/19 10:28 98.6 F 85 14 150/79 94 05/30/19 10:25 94 05/30/19 06:44 98.6 F 82 16 146/78 94 Intake and Output 05/29/19 05/30/19 05/30/19 23:59 07:59 15:59 Intake Total 1402 / 1902 Output Total 500 / 2600 600 / 1500 900 / 1500 Balance 902 / -698 -600 / -1500 -900 / -1500 Intake: IV Fluids 1402 / 1902 0.9 % Sodium Chloride 1,000 ML 246 / 396 @ 100 mls/hr IVC .Q10H [facility] Rx#: [id number] Clinimix E 5%-15% SOLUTION 2, 1156 / 1156 000 ML @ 50 mls/hr IVC .Q24H [facility] with M.v.i. Adult 10 ml Rx# :[id number] Output: Urine 500 / 2200 600 / 1200 600 / 1200 Gastric Drainage 300 / 300 Right Nare 300 / 300 Other: Meal npo Percent of Meal Consumed 0% # Voids 1 Blood Glucose* 197 228 - General physical appearance well nourished, no distress, no pain - ENT atraumatic, normocephalic - Neck Neck exam: trachea midline - Respiratory normal expansion, normal respiratory effort, clear to auscultation - Cardiovascular Cardiovascular exam: Present: RRR - Abdomen Abdomen: Present: bowel sounds present, soft, non tender, distended - Incision Incision: Present: clean and dry, intact - Integumentary no rash - Neurologic normal sensation - Musculoskeletal normal posture - Psychiatric oriented to time, oriented to person, oriented to place, speech is normal - Labs 05/27/19 04:05 05/30/19 04:24 Diabetes panel 05/30/19 Range/Units 04:24 Sodium 141 (136-145) mEq/L Potassium 3.2 L (3.5-5.1) mEq/L Chloride 107 (98-107) mEq/L Carbon Dioxide 26 (23-29) mEq/L BUN 12 (8-23) mg/dL Creatinine 0.79 (0.60-1.20) mg/dL Glucose 216 H (70-105) mg/dL Calcium 7.9 L (8.6-10.3) mg/dL Calcium panel 05/30/19 Range/Units 04:24 Calcium 7.9 L (8.6-10.3) mg/dL Phosphorus 3.0 (2.7-4.5) mg/dL Pituitary panel 05/30/19 Range/Units 04:24 Sodium 141 (136-145) mEq/L Potassium 3.2 L (3.5-5.1) mEq/L Chloride 107 (98-107) mEq/L Carbon Dioxide 26 (23-29) mEq/L BUN 12 (8-23) mg/dL Creatinine 0.79 (0.60-1.20) mg/dL Glucose 216 H (70-105) mg/dL Calcium 7.9 L (8.6-10.3) mg/dL Adrenal panel 05/30/19 Range/Units 04:24 Sodium 141 (136-145) mEq/L Potassium 3.2 L (3.5-5.1) mEq/L Chloride 107 (98-107) mEq/L Carbon Dioxide 26 (23-29) mEq/L BUN 12 (8-23) mg/dL Creatinine 0.79 (0.60-1.20) mg/dL Glucose 216 H (70-105) mg/dL Calcium 7.9 L (8.6-10.3) mg/dL Consult Discharge Plan - Plan Referrals: Sun June MD [Primary Care Provider] - <Rosario Santana - Last Filed: 05/31/19 14:29> Date of Encounter: 05/31/19 - Assessment and Plan (1) Postoperative ileus Current Visit: Yes Status: Acute patient tolerated her sbft well with normal transition time start clears TPN prn pain control OOB/ambulate up to chair for all meals gi/dvt prophylaxis (2) Status post reversal of ileostomy Current Visit: Yes Status: Acute (3) Chronic kidney disease (CKD) Current Visit: Yes Status: Chronic Qualifiers: Chronic kidney disease stage: stage 3 (moderate) Qualified Code(s): N18.3 - Chronic kidney disease, stage 3 (moderate) (4) Hypertension Current Visit: Yes Status: Chronic Qualifiers: Hypertension type: secondary to endocrine disorders Qualified Code(s): I15.2 - Hypertension secondary to endocrine disorders (5) T2DM (type 2 diabetes mellitus) Current Visit: Yes Status: Chronic Qualifiers: Diabetes mellitus terminal supervisor insulin use: without terminal supervisor use Diabetes mellitus complication status: with kidney complications Diabetes mellitus complication detail: with chronic kidney disease Chronic kidney disease stage: stage 3 (moderate) Qualified Code(s): E11.22 - Type 2 diabetes mellitus with diabetic chronic kidney disease; N18.3 - Chronic kidney disease, stage 3 (moderate) Subjective Patient reports: no new complaints, feels better, flatus, bowel movement (small), afebrile Objective Vital Signs - Last 8 Hours Temp Pulse Resp BP Pulse Ox 05/31/19 11:34 98.9 F 71 16 125/79 95 05/31/19 07:43 98.1 F 83 16 119/68 92 Intake and Output 05/30/19 05/31/19 05/31/19 23:59 07:59 15:59 Intake Total 250 / 250 Output Total 300 / 2500 1000 / 1000 Balance -300 / -2250 -750 / -750 Intake: IV Fluids 250 / 250 Intralipid 20% 250 ML @ 21 mls/ 250 / 250 hr IVPB DAILY@1700 [facility] Rx#: [id number] Output: Urine 0 / 1900 1000 / 1000 Urine/Stool Mix 300 / 300 Other: Stool Size Small Stool Consistency liquid Stool Color Brown # Voids 1 # Urine Diapers 1 Blood Glucose* 119 189 169 - General physical appearance well nourished, no distress, no pain - ENT normal mucosa, normocephalic - Neck Neck exam: trachea midline - Respiratory normal expansion, clear to auscultation - Cardiovascular Cardiovascular exam: Present: RRR - Abdomen Abdomen: Present: bowel sounds present, soft, non tender. Absent: distended - Incision Incision: Present: clean and dry, intact - Integumentary no rash - Neurologic normal sensation - Musculoskeletal normal posture - Psychiatric oriented to time, oriented to person, oriented to place, speech is normal - Labs 05/27/19 04:05 05/31/19 03:36 Diabetes panel 05/31/19 Range/Units 03:36 Sodium 145 (136-145) mEq/L Potassium 3.4 L (3.5-5.1) mEq/L Chloride 112 H (98-107) mEq/L Carbon Dioxide 27 (23-29) mEq/L BUN 17 (8-23) mg/dL Creatinine 0.82 (0.60-1.20) mg/dL Glucose 186 H (70-105) mg/dL Calcium 8.5 L (8.6-10.3) mg/dL Calcium panel 05/31/19 Range/Units 03:36 Calcium 8.5 L (8.6-10.3) mg/dL Phosphorus 3.2 (2.7-4.5) mg/dL Pituitary panel 05/31/19 Range/Units 03:36 Sodium 145 (136-145) mEq/L Potassium 3.4 L (3.5-5.1) mEq/L Chloride 112 H (98-107) mEq/L Carbon Dioxide 27 (23-29) mEq/L BUN 17 (8-23) mg/dL Creatinine 0.82 (0.60-1.20) mg/dL Glucose 186 H (70-105) mg/dL Calcium 8.5 L (8.6-10.3) mg/dL Adrenal panel 05/31/19 Range/Units 03:36 Sodium 145 (136-145) mEq/L Potassium 3.4 L (3.5-5.1) mEq/L Chloride 112 H (98-107) mEq/L Carbon Dioxide 27 (23-29) mEq/L BUN 17 (8-23) mg/dL Creatinine 0.82 (0.60-1.20) mg/dL Glucose 186 H (70-105) mg/dL Calcium 8.5 L (8.6-10.3) mg/dL - Attending Attestation I have personally performed a face to face evaluation on this patient. I have reviewed and agree with the care plan. History and Exam by me shows:
[2019-05-30] MEDS ORDERED: Clinimix E 5%-15% SOLUTION 2,000 ML with MVI, adult with vitamin K 10 ML IVC SCH (17:00)
[2019-05-31] MEDS: Insulin LISPRO 300 UNITS/3 ML VIAL SQ SCH ×6 (00:13→23:35)
[2019-05-31] MEDS: Ondansetron 4 MG/2 ML VIAL IVP SCH ×7 (01:04→23:35)
[2019-05-31 04:52] LABS: BUN/Creatinine Ratio 21 (6-26); Blood Urea Nitrogen 17 mg/dL (8-23); Calcium 8.5 mg/dL (8.6-10.3); Carbon Dioxide 27 mEq/L (23-29); Chloride 112 mEq/L (98-107); Glucose 186 mg/dL (70-105); Magnesium 1.7 mg/dL (1.6-2.6); Osmolality,Calculated 306 (280-300); Phosphorous 3.2 mg/dL (2.7-4.5); Potassium 3.4 mEq/L (3.5-5.1); Sodium 145 mEq/L (136-145); eGFR For African Americans > 60 (> 60); eGFR For Non-African Americans > 60 (> 60)
[2019-05-31 04:54] LABS: VBG Ionized Calcium 1.25 mmol/L (1.15-1.35)
[2019-05-31] MEDS: *HR* Heparin 5,000 UNIT/ML VIAL SQ SCH ×2 (05:48→17:58)
[2019-05-31] MEDS: Pantoprazole 40 MG VIAL IVP SCH (09:10)
--- NOTE | 2019-05-31 09:32 | General Surgery Progress Note ---
<Reyna Garza Christiano - Last Filed: 05/31/19 09:41> Date of Encounter: 05/31/19 Time of Encounter: 09:28 - Assessment and Plan (1) Postoperative ileus Status: Acute SBFT w/GG noted transition to colon and patient subsequently having multiple BMs and passing flatus. Pt states she feels significantly improved. Nondistended, soft, active bowel sounds. Plan: Continue supportive care and discomfort management advanced to full liquid diet with Glucerna or sugar-free protein supplement TID stop TPN Continue G.I. and DVT prophylaxis Incentive spirometry 10 times every hour while awake Out of bed to chair TID, do not offer meal trays while in the bed (pt with breakfast tray in bed, reminded patient to be in chair for all meals), order previously placed for OOB to chair for all meals Ambulate today with PT/OT Apply ice 20 minutes on 20 minutes off as needed Anticipate d/c home in the next 24-48 hours pending clinical course. Pt states she would like HHC if need. PT/OT note patient at baseline on 05/28/2019. Will await further reccs per PT/OT Remove wesley (2) Status post reversal of ileostomy Status: Acute surgical site is unremarkable. POI resolving. See above (3) Hypertension Status: Chronic BP stable. Will slowly resume home BP medications (added losartan-hctz today) Qualifiers: Hypertension type: secondary to endocrine disorders Qualified Code(s): I15.2 - Hypertension secondary to endocrine disorders (4) Hypokalemia Status: Acute Replete as indicated Will defer repletion today as restarted k sparing diuretic (5) Chronic kidney disease (CKD) Status: Chronic Creatinine normal. Continue to monitor Qualifiers: Chronic kidney disease stage: stage 3 (moderate) Qualified Code(s): N18.3 - Chronic kidney disease, stage 3 (moderate) (6) T2DM (type 2 diabetes mellitus) Status: Chronic Q6H accu check and SSI Switch to ACHS when taking soft diet and resume home po meds at that time Qualifiers: Diabetes mellitus exterminator helper termite insulin use: without exterminator helper termite use Diabetes mellitus complication status: with kidney complications Diabetes mellitus complication detail: with chronic kidney disease Chronic kidney disease stage: stage 3 (moderate) Qualified Code(s): E11.22 - Type 2 diabetes mellitus with diabetic chronic kidney disease; N18.3 - Chronic kidney disease, stage 3 (moderate) (7) Anemia in chronic kidney disease (CKD) Status: Resolved hgb stable. No evidence of acute bleed. No indication for transfusion Qualifiers: Chronic kidney disease stage: stage 3 (moderate) Qualified Code(s): N18.3 - Chronic kidney disease, stage 3 (moderate); D63.1 - Anemia in chronic kidney disease (8) Protein calorie malnutrition Status: Acute Stop TPN. See above Qualifiers: Protein-calorie malnutrition severity: unspecified severity Qualified Code(s): E46 - Unspecified protein-calorie malnutrition (9) Hypomagnesemia Status: Resolved Replete as indicated Subjective Patient reports: no new complaints, feels better, pain is less, tolerating liquids well, voiding w/o difficulty, flatus, bowel movement, afebrile Objective Vital Signs - Last 8 Hours Temp Pulse Resp BP Pulse Ox 05/31/19 07:43 98.1 F 83 16 119/68 92 05/31/19 04:11 98.8 F 85 17 129/77 92 Intake and Output 05/30/19 05/31/19 05/31/19 23:59 07:59 15:59 Intake Total 250 / 250 Output Total 300 / 2500 1000 / 1000 Balance -300 / -2250 -750 / -750 Intake: IV Fluids 250 / 250 Intralipid 20% 250 ML @ 21 mls/ 250 / 250 hr IVPB DAILY@1700 [facility] Rx#: [id number] Output: Urine 0 / 1900 1000 / 1000 Urine/Stool Mix 300 / 300 Other: Stool Size Small Stool Consistency liquid Stool Color Brown # Urine Diapers 1 Blood Glucose* 119 189 170 - General physical appearance well nourished, no distress, no pain - ENT atraumatic, normocephalic - Neck Neck exam: trachea midline - Respiratory normal expansion, normal respiratory effort - Cardiovascular Cardiovascular exam: Present: RRR - Abdomen Abdomen: Present: bowel sounds present, soft, non tender. Absent: tympanic, distended - Incision Incision: Present: clean and dry, intact - Integumentary no rash - Neurologic normal sensation - Musculoskeletal normal posture - Psychiatric oriented to time, oriented to person, oriented to place, speech is normal - Labs 05/27/19 04:05 05/31/19 03:36 Diabetes panel 05/31/19 Range/Units 03:36 Sodium 145 (136-145) mEq/L Potassium 3.4 L (3.5-5.1) mEq/L Chloride 112 H (98-107) mEq/L Carbon Dioxide 27 (23-29) mEq/L BUN 17 (8-23) mg/dL Creatinine 0.82 (0.60-1.20) mg/dL Glucose 186 H (70-105) mg/dL Calcium 8.5 L (8.6-10.3) mg/dL Calcium panel 05/31/19 Range/Units 03:36 Calcium 8.5 L (8.6-10.3) mg/dL Phosphorus 3.2 (2.7-4.5) mg/dL Pituitary panel 05/31/19 Range/Units 03:36 Sodium 145 (136-145) mEq/L Potassium 3.4 L (3.5-5.1) mEq/L Chloride 112 H (98-107) mEq/L Carbon Dioxide 27 (23-29) mEq/L BUN 17 (8-23) mg/dL Creatinine 0.82 (0.60-1.20) mg/dL Glucose 186 H (70-105) mg/dL Calcium 8.5 L (8.6-10.3) mg/dL Adrenal panel 05/31/19 Range/Units 03:36 Sodium 145 (136-145) mEq/L Potassium 3.4 L (3.5-5.1) mEq/L Chloride 112 H (98-107) mEq/L Carbon Dioxide 27 (23-29) mEq/L BUN 17 (8-23) mg/dL Creatinine 0.82 (0.60-1.20) mg/dL Glucose 186 H (70-105) mg/dL Calcium 8.5 L (8.6-10.3) mg/dL Consult Discharge Plan - Plan Instructions: Diabetes Mellitus Type 2 in Adults (DC), Chronic Hypertension (DC), Ileostomy Closure (DC), Anemia (GEN), Ileus (DC) Additional Instructions: General Surgical Discharge Instructions 1. No pushing, pulling, or lifting greater than 15 lbs for 6 weeks 2. You may shower, but no tub baths, soaking, or swimming for 2 weeks. 3. You may resume driving when you are off narcotics and are safe to react in a car. 4. Take ibuprofen every 8 hours for discomfort. 5. Take stool softeners (Colace) or a water based laxative (Miralax) while taking narcotics. You may hold for loose stools. 6. Report any fevers greater than 100.5F, increase abdominal discomfort, drainage that looks like pus, increased redness or pain at the surgical site, or any vomiting. 7. Report any pain in the calves, shortness of breath, or rapid heartbeat. 8. Follow-up in the office as directed. Referrals: Sun June MD [Primary Care Provider] - 06/10/19 12:30 pm Rosario Santana MD [Partnered Physician] - 06/17/19 12:45 pm (Surgery and hospital follow-up; [place] office) <Rosario Santana - Last Filed: 06/06/19 10:22> Date of Encounter: 05/31/19 - Assessment and Plan (1) Postoperative ileus Status: Resolved tolerating clears and advancing to fulls passing flatus regularly and having small bm's ambulating gi/dvt prophylaxis dc wesley (2) Status post reversal of ileostomy Status: Acute (3) Chronic kidney disease (CKD) Status: Chronic Qualifiers: Chronic kidney disease stage: stage 3 (moderate) Qualified Code(s): N18.3 - Chronic kidney disease, stage 3 (moderate) (4) Hypertension Status: Chronic Qualifiers: Hypertension type: secondary to endocrine disorders Qualified Code(s): I15.2 - Hypertension secondary to endocrine disorders (5) T2DM (type 2 diabetes mellitus) Status: Chronic Qualifiers: Diabetes mellitus exterminator helper termite insulin use: without [facility] use Diabetes mellitus complication status: with kidney complications Diabetes mellitus complication detail: with chronic kidney disease Chronic kidney disease stage: stage 3 (moderate) Qualified Code(s): E11.22 - Type 2 diabetes mellitus with diabetic chronic kidney disease; N18.3 - Chronic kidney disease, stage 3 (moderate) Subjective Patient reports: feels better, tolerating liquids well, voiding w/o difficulty, flatus, bowel movement Objective - General physical appearance well developed, well nourished, no distress, no pain - Eyes normal ocular movement - ENT normocephalic - Respiratory normal expansion, clear to auscultation - Cardiovascular Cardiovascular exam: Present: RRR - Abdomen Abdomen: Present: bowel sounds present, soft, non tender. Absent: tympanic, distended, guarding, rebound - Incision Incision: Present: clean and dry, intact - Integumentary no rash - Neurologic normal sensation - Musculoskeletal normal posture - Psychiatric oriented to time, oriented to person, oriented to place, speech is normal - Labs 05/27/19 04:05 05/31/19 03:36 - Attending Attestation I have personally performed a face to face evaluation on this patient. I have reviewed and agree with the care plan. History and Exam by me shows:
[2019-05-31] MEDS: Losartan/HCTZ 50-12.5 TABLET PO SCH (10:28)
[2019-05-31] MEDS: *HR* OxyCODONE/APAP 5/325 TABLET PO PRN ×2 (10:28→17:58)
[2019-05-31] MEDS: Acetaminophen 325 MG TABLET PO PRN (20:04)
[2019-06-01] MEDS: Ondansetron 4 MG/2 ML VIAL IVP SCH ×2 (04:10→09:05)
[2019-06-01] MEDS: Insulin LISPRO 300 UNITS/3 ML VIAL SQ SCH (05:26)
[2019-06-01] MEDS: *HR* Heparin 5,000 UNIT/ML VIAL SQ SCH (05:26)
[2019-06-01] MEDS: Acetaminophen 325 MG TABLET PO PRN ×2 (05:29→13:59)
[2019-06-01] MEDS ORDERED: Aspirin 81 MG TAB.CHEW PO SCH (09:00)
[2019-06-01] MEDS: Losartan/HCTZ 50-12.5 TABLET PO SCH (09:18)
[2019-06-01] MEDS: Pantoprazole 40 MG VIAL IVP SCH (09:18)
--- NOTE | 2019-06-01 09:42 | Discharge Summary ---
Date of Encounter: 06/01/19 Time of Encounter: 09:15 - Discharge Diagnosis (1) Postoperative ileus Priority: Primary Status: Resolved (2) Chronic kidney disease (CKD) Priority: Secondary Status: Chronic Qualifiers: Chronic kidney disease stage: stage 3 (moderate) Qualified Code(s): N18.3 - Chronic kidney disease, stage 3 (moderate) (3) Hypertension Priority: Secondary Status: Chronic Qualifiers: Hypertension type: secondary to endocrine disorders Qualified Code(s): I15.2 - Hypertension secondary to endocrine disorders (4) T2DM (type 2 diabetes mellitus) Priority: Secondary Status: Chronic Qualifiers: Diabetes mellitus [facility] insulin use: without [facility] use Diabetes me llitus complication status: with kidney complications Diabetes mellitus complication detail: with chronic kidney disease Chronic kidney disease stage: stage 3 (moderate) Qualified Code(s): E11.22 - Type 2 diabetes mellitus with diabetic chronic kidney disease; N18.3 - Chronic kidney disease, stage 3 (moder ate) General Surgery Exam Initial Vital Signs Temp Pulse Resp BP Pulse Ox 98.5 F 76 17 114/66 90 05/23/19 21:22 05/23/19 21:22 05/23/19 21:22 05/23/19 21:22 05/23/19 21:22 - General physical appearance well developed, well nourished, no distress - Eyes normal ocular movement - ENT normal mucosa, atraumatic, normocephalic - Neck trachea midline - Respiratory normal expansion, normal respiratory effort, clear to auscultation - Cardiovascular Cardiovascular exam: Present: RRR, 15, 16 - Abdomen Abdomen general surgery: Present: bowel sounds present, soft, non tender - Incision Incision: Present: clean and dry, intact - Integumentary Integumentary general surgery: Present: warm and dry - Neurologic Present: CN 2-12 grossly intact - Musculoskeletal Present: normal gait, normal posture - Psychiatric Psychiatric general surgery: Present: A&Ox3 - Hospital Course Hospital course: Ms. Aviles is a 68 year old female who recently underwent ileostomy take down on 05/16/[address] Santana. Her postoperative course was uncomplicated. She was noted to have had spillage during her operative course was therefore kept in the hospital for IV antibiotics. She was discharged to home on 05/19/2019. She was re-admitted for a post-operative ileus 1 weeks ago. The patient was treated with conservative measures including NG tube and bowel rest. The patient was also treated with methylnaltrexone and Reglan. A small bowel follow-through on May 30 shows movement of contrast into the colon in 120 minutes. The pa santos's diet was slowly advanced and she is currently tolerating full liquids. She denies any nausea or vomiting. She states her abdominal pain and bloating has resolved. She is passing flatus and having bowel movements regularly. Her vital signs are stable and she is afebrile. We will begin discharge planning to home and plan for outpatient follow-up in the next [address] Santana. The patient will call the office with any questions or concerns prior to her follow- up appointment. - Time Spent with Patient Total time spent providing and/or coordinating discharge services: Less than 30 minutes - Discharge Medications Prescriptions: Continued Aspirin 81 mg PO DAILY Metformin HCl [Glucophage Xr] 750 mg PO QPM Amlodipine Besylate 10 mg PO DAILY Metoprolol Tartrate 100 mg PO BID Ferrous Sulfate [Iron] 325 mg PO BID #60 tablet Glimepiride [Amaryl] 2 mg PO BID Losartan/Hydrochlorothiazide [Losartan-Hctz 100-12.5 mg Tab] 0.5 tab PO DAILY OxyCODONE Immed Rel [Roxicodone 5 MG] 5 mg PO Q6HR PRN 5 Days #20 tablet PRN Reason: Severe Pain Ondansetron HCl [Zofran] 4 mg PO Q8HR PRN #14 tab PRN Reason: Nausea Pravastatin Sodium [Pravachol] 20 mg PO HS Cyanocobalamin (Vitamin B-12) [Vitamin B12] 1,000 mcg PO DAILY Home Medications: Pravastatin Sodium [Pravachol] 20 mg PO HS 05/16/15 [History] Aspirin 81 mg PO DAILY 07/01/16 [History] Cyanocobalamin (Vitamin B-12) [Vitamin B12] 1,000 mcg PO DAILY 07/02/18 [History] Metformin HCl [Glucophage Xr] 750 mg PO QPM 11/09/18 [History] Amlodipine Besylate 10 mg PO DAILY 11/29/18 [History] Metoprolol Tartrate 100 mg PO BID 11/30/18 [History] Ferrous Sulfate [Iron] 325 mg PO BID #60 tablet 03/21/19 [Rx] Glimepiride [Amaryl] 2 mg PO BID 05/16/19 [History] Losartan/Hydrochlorothiazide [Losartan-Hctz 100-12.5 mg Tab] 0.5 tab PO DAILY 05/16/19 [History] Ondansetron HCl [Zofran] 4 mg PO Q8HR PRN #14 tab 05/19/19 [Rx] OxyCODONE Immed Rel [Roxicodone 5 MG] 5 mg PO Q6HR PRN 5 Days #20 tablet 05/19/19 [Rx] Allergies/Adverse Reactions: Allergy/AdvReac Type Severity Reaction Status Date / Time pioglitazone [From Actos] Allergy See Verified 05/23/19 18:21 Comments Date of admission: 05/24/19 09:27 Primary care physician: Sun June Consults: 05/27/19 09:49 Consult to Nutrition [CONS] Stat Comment: TPN; Titrate MIV to TPN goal. Stop MIV when at goa Consulting Provider: NUTRITION Reason for Dietary Consult: TPN Start and Manage 05/27/19 09:53 Consult to Occupational Therapy [CONS] Routine Comment: Evaluate, develop and implement POC Reason for Consult: mobilization and d/c planning. She will be starting TPN, prolonged hospital stay Does patient have active BEDREST order?: No Is patient medically & hemodynamically stable?: Yes Patient assessed for mobility or mobilized this visit?: No Consult to Physical Therapy [CONS] Routine Comment: Evaluate, develop and implement POC Reason for Consult: mobilization and d/c planning. She will be starting TPN, prolonged hospital stay Does patient have active BEDREST order?: No Is patient medically & hemodynamically stable?: Yes Patient assessed for mobility or mobilized this visit?: No 05/27/19 10:10 Consult to Invasive Line Access Team [CONS] Routine Reason for Consult: poor access Line Type: EPIV 05/31/19 15:36 Consult to Compensation/Benefits Specialist [CONS] Routine Reason for SW Consult: possible d/c 06/01/2019; wants to continue [facility] for PT. physical therapy recommneds home PT. 06/01/19 08:00 Consult to Nutrition [CONS] Routine Comment: Diet s/p ileostomy takedown Consulting Provider: NUTRITION Reason for Dietary Consult: Diet Education Discharging clinician: Rosario Tinajero) Anticipated date of discharge: 06/01/19 Labs on day of discharge: Labs from last 24 hours 06/01/19 05/31/19 05/31/19 05:18 23:31 19:20 POC Glucose 139 H 131 H 143 H 05/31/19 05/31/19 05/31/19 16:16 11:37 03:41 POC Glucose 137 H 169 H 184 H 05/30/19 23:48 POC Glucose 119 H - Impressions ITS Impressions KUB X-Ray 05/24/19 10:28 IMPRESSION: Enteric tube in the stomach as above. Abnormal bowel gas pattern with distended loops of small bowel. Recommend serial follow-up radiographic imaging. Findings concerning for partial small bowel obstruction. D/ / Blake Garcia MD / Blake Garcia MD Interpreting Provider: Blaek Garcia MD X-Ray 05/25/19 08:32 IMPRESSION: Persistently dilated loops of small bowel which can be seen in a small bowel obstruction and ileus. Continued follow-up is recommended. Tip of the enteric tube overlies the region of the distal stomach/proximal small bowel. D/ / Catarino Whitmore / Catarino Whitmore Interpreting Provider: Catarino Whitmore X-Ray 05/26/19 08:02 IMPRESSION: Stable moderate distended small bowel loops extending to the distal small bowel. D/ / 05/26/2019 08:07:54 Luis Harmon MD / Candi Raymond Interpreting Provider: Luis Harmon MD Small Bowel X-Ray 05/26/19 13:56 IMPRESSION: The study was terminated as the patient immediately vomited the contrast. Dilated loops of small bowel that likely represents small bowel obstruction. D/ / 05/26/2019 14:38:01 Althea Jimenez MD / Candi Raymond Interpreting Provider: Althea Jimenez MD Abdomen X-Ray 05/27/19 08:57 IMPRESSION: Stable dilation of the small bowel loops favoring partial small bowel obstruction. Ileus is considered less likely. Follow-up examination is suggested. D/ / 05/27/2019 09:04:00 Javi Moss MD / jolynn Interpreting Provider: Javi Moss MD X-Ray 05/28/19 07:38 IMPRESSION: Increasing distention of the small bowel loops suggesting persistent small bowel obstruction. The findings were sent to the Radiology Results Communication [facility] at 7:39 am on 05/28/2019to be communicated to a licensed caregiver. D/ / 05/28/2019 08:01:47 Althea Jimenez MD / stacey Interpreting Provider: Althea Jimenez MD Small Bowel X-Ray 05/30/19 14:14 IMPRESSION: Prominent loops of small bowel throughout the abdomen measuring up to 3.3 cm in diameter compatible with partial obstruction or ileus. Contrast reaches the hepatic flexure of the colon and the patient had bowel movement at 120 minutes after ingestion of contrast. D/ / 05/30/2019 14:20:59 Hali Sánchez MD / belinda Interpreting Provider: Hali Sánchez MD - Patient Status Disposition: Home, Self-Care Condition: Good Functional capacity at discharge: independent ambulation Overall status at discharge: patient is progressing back to baseline - Discharge Instructions Instructions: Ileostomy Closure (DC), Ileus (DC) Follow Up With: Sun June MD [Primary Care Provider] - Rosario Santana MD [Partnered Physician] - 06/17/19 12:45 pm (Surgery and hospital follow-up; [place] office) Additional Instructions: General Surgical Discharge Instructions 1. No pushing, pulling, or lifting greater than 15 lbs for 6 weeks 2. You may shower, but no tub baths, soaking, or swimming for 2 weeks. 3. You may resume driving when you are off narcotics and are safe to react in a car. 4. Take ibuprofen every 8 hours for discomfort. 5. Take stool softeners (Colace) or a water based laxative (Miralax) while taking narcotics. You may hold for loose stools. 6. Report any fevers greater than 100.5F, increase abdominal discomfort, drainage that looks like pus, increased redness or pain at the surgical site, or any vomiting. 7. Report any pain in the calves, shortness of breath, or rapid heartbeat. 8. Follow-up in the office as directed. - Diet and Activity Activity: other (See additional instructions above) Diet: advance to your usual diet
[2019-06-01 10:18] VITALS: BP 145/73
--- NOTE | 2019-06-01 11:08 | Physician Discharge Referral ---
Home Health/Hosp Referral Info Transfer to: Home Health Attending Provider: Dr. Rosario Santana Provider in Charge Post Discharge: PCP (and Dr. Santana) - Diagnosis (1) Postoperative ileus Priority: Primary Status: Resolved (2) Chronic kidney disease (CKD) Priority: Secondary Status: Chronic (3) Hypertension Priority: Secondary Status: Chronic (4) T2DM (type 2 diabetes mellitus) Priority: Secondary Status: Chronic - Respiratory Orders None - Diet/Nutrition Diet/Nutrition Orders: Regular - Activity Activity Orders: Up ad ozzie, Ambulate - Services Needed Following services are medically necessary services: Nursing, Physical Therapy, Occupational Therapy Home Care Orders: Assess and treat - Transfer Medications Home Medications: Pravastatin Sodium [Pravachol] 20 mg PO HS 05/16/15 [History] Aspirin 81 mg PO DAILY 07/01/16 [History] Cyanocobalamin (Vitamin B-12) [Vitamin B12] 1,000 mcg PO DAILY 07/02/18 [History] Metformin HCl [Glucophage Xr] 750 mg PO QPM 11/09/18 [History] Amlodipine Besylate 10 mg PO DAILY 11/29/18 [History] Metoprolol Tartrate 100 mg PO BID 11/30/18 [History] Ferrous Sulfate [Iron] 325 mg PO BID #60 tablet 03/21/19 [Rx] Glimepiride [Amaryl] 2 mg PO BID 05/16/19 [History] Losartan/Hydrochlorothiazide [Losartan-Hctz 100-12.5 mg Tab] 0.5 tab PO DAILY 05/16/19 [History] Ondansetron HCl [Zofran] 4 mg PO Q8HR PRN #14 tab 05/19/19 [Rx] OxyCODONE Immed Rel [Roxicodone 5 MG] 5 mg PO Q6HR PRN 5 Days #20 tablet 05/19/19 [Rx] Allergies/Adverse Reactions: Allergy/AdvReac Type Severity Reaction Status Date / Time pioglitazone [From Actos] Allergy See Verified 05/23/19 18:21 Comments Certification: Further, I certify that my clinical findings support that this patient is homebound (i.e. absences from home require considerable and taxing effort and are for medical reasons or sikh services or infrequently or short duration when for other reasons) because: Homebound Reason: Patient requires assistance of a person or device to safely leave home, Post-surgery restriction and or conditions limit ability to leave home, Leaving home requires considerable and taxing effort due to condition Attestation: My signature below is to certify that this patient is under my care and that I, or nurse practitioner, or a physician's podiatry assistant working with me, has a [id number] encounter with this patient.
== END 2019-06-01 14:31 | disposition home or self-care (01) | DRG 394 ==
LOC: 3ANU
PROVIDERS: ADMIT Surgery; ATTEND Surgery